=== PATIENT | female | born 1945 | race Caucasian/White ===

== ENCOUNTER 2022-05-07 10:00 | Inpatient (IN) | payer MEDICARE, BC, SELFPAY ==
[2022-05-07] VITALS (7 sets, daily range): BP systolic 98–139; BP diastolic 65–79; PULSE 77–100; RESP 16–22; TEMP 35.9–36.8; O2SAT 85–98; BMI 26.0; BMI 165.6
--- NOTE | 2022-05-07 10:20 | XR_ITS ---
Final Report Patient: BOUBACAR HOLM Facility:?[facility] Patient ID:?[id number] Site Patient ID:?[id number]. Site :?[id number] Study:?XRay Chest Portable 1 View-05/07/2022 10:55:07 AM Ordering Physician:Dale Lara Final Report: INDICATION: Shortness of breath. TECHNIQUE: Chest 1 views. COMPARISON: None. FINDINGS: Cardiovascular and mediastinum: Heart size and vasculature are normal in caliber and appearance. Lungs and pleural spaces: Minimal linear atelectasis or scarring in the left lung base. Lungs are otherwise clear. No sign of infiltrate or mass. No sign of pleural effusion. No pneumothorax. Bones and soft tissues: No significant findings. IMPRESSION: Mild left basilar scarring/atelectasis. No evidence of acute abnormality. Dictated by Nick Castillo MD @ 05/07/2022 11:08:01 AM (Electronic Signature)
--- NOTE | 2022-05-07 10:28 | ED.GENADULT ---
HPI - General Adult General Time Seen by Provider: 10:30 Date Seen: 05/07/22 Chief complaint: Weakness Stated complaint: Covid +, weakness, SOB Source: patient Mode of arrival: ambulatory Limitations: no limitations History of Present Illness HPI narrative: Patient is a 68 year white female that had COVID diagnosed 5 days ago, and has been short of breath progressively over the last couple of days. She has had no history of chronic lung disease by her report. She is on not on oxygen at home. She has had a slight cough. She has had no leg swelling or edema, bleeding or clotting problems. She lives independently in [place]. She presents to ED via ambulance for assessment. She feels ?worn out ?, and feels very weak, she denies any leg swelling as mentioned her bleeding or clotting problems. Patient denies rigors or chills. She was vaccinated for COVID. No neurologic complaints Onset (ago): day(s) Radiation: non-radiation Severity: moderate Related Data Allergies Allergy/AdvReac Type Severity Reaction Status Date / Time azithromycin Allergy Mild Nausea Verified 05/07/22 11:22 Sulfa (Sulfonamide Allergy Mild Nausea Verified 05/07/22 11:22 Antibiotics) Review of Systems Narrative: Review of systems is negative for cardiopulmonary GI neurologic skin. Complete review of systems is negative other per positive HPI. Exam Narrative: Exam Narrative: Objective: The patient's vital signs are unremarkable other than O2 sat in the mid 80s, on room air. Patient gets in the mid 90s on oxygen. She is alert orient x3. Appears weak. HEENT is unremarkable no scleral icterus no facial asymmetry Neck is supple Chest is clear, diminished air exchange bilaterally Heart rate and rhythm regular 2/6 silk systolic murmur Abdomen benign soft nontender no masses Extremities are no edema neurologic nonfocal Good peripheral perfusion Skin exam is unremarkable, skin is warm and dry. Const: Vital Signs, click to edit/add: Vital Signs - 24 hr 05/07/22 10:04 Temperature 96.7 F L Pulse Rate [Right Apical] 100 Respiratory Rate 22 Blood Pressure [Ri ght Upper Arm] 98/66 Pulse Oximetry 88 General appearance: cooperative Orientation/consciousness: Yes awake Neuro: Sensorium/orientation: awake Course Course Hospital Course: Because of the patient's complaint of COVID with shortness of breath will get a chest x-ray, EKG, cardiac monitoring as well as oximetry, will keep her on oxygen. Will give her 500 mL normal saline bolus. Check laboratory studies. Vital Signs Vital signs: Initial Vital Signs Temperature 96.7 F L 05/07/22 10:04 Temperature Source Temporal Artery Scan 05/07/22 10:04 Pulse Rate 100 05/07/22 10:04 Respiratory Rate 22 05/07/22 10:04 Blood Pressure 98/66 05/07/22 10:04 Blood Pressure Mean 76 05/07/22 10:04 Pulse Oximetry 88 05/07/22 10:04 Oxygen Delivery Method 05/07/22 10:04 Vital Signs Temperature 96.7 F L 05/07/22 10:04 Pulse Rate 100 05/07/22 10:04 Respiratory Rate 22 05/07/22 10:04 Blood Pressure 98/66 05/07/22 10:04 Pulse Oximetry 88 05/07/22 10:04 Temperature 96.7 F L 05/07/22 10:04 Pulse Rate 100 05/07/22 10:04 Respiratory Rate 22 05/07/22 10:04 Blood Pressure 98/66 05/07/22 10:04 Pulse Oximetry 88 05/07/22 10:04 Discharge Plan Discharge Clinical Impression: COVID-19, Breath shortness, Weakness Patient Disposition: Admitted As Inpatient Condition: Improved
--- NOTE | 2022-05-07 10:57 | CT_ITS ---
Final Report Patient: BOUBACAR HOLM Facility:?[facility] Patient ID:?[id number] Site Patient ID:?[id number]. Site :?[id number] Study:?CT Chest W/ 95CC ISOVUE-370 PE PROTOCOL-05/07/2022 12:45:52 PM Ordering Physician:Dale Lara Final Report: INDICATION: COVID. Dyspnea. COMPARISON: None TECHNIQUE: : CT examination of the chest was performed with the uneventful intravenous administration of 95 cc of Isovue 370 while thin axial sections were obtained from above the apices of the lungs to the lung bases. Please note that all CT scans at this facility use dose modulation, iterative reconstruction, and/or weight-based dosing when appropriate to reduce radiation dose to as low as reasonably achievable. FINDINGS: : HEART and MEDIASTINUM: The heart size is normal. There is no mediastinal or hilar adenopathy or mass. There is no pericardial effusion. There atherosclerotic vascular and valvular calcifications. PULMONARY ARTERIAL CIRCULATION: There is no visible intraluminal filling defect to suggest pulmonary embolus. LUNGS: Moderate upper lobe predominant centrilobular emphysema. Evidence of remote granulomatous infection. Linear opacities the mid lungs and at the bases probably related atelectasis or scarring. Mild patchy ground-glass opacities in the mid and basilar lungs probably inflammatory. A few noncalcified nodules are identified the largest of which measures 6 millimeters on the right on image 114. PLEURAL SPACES: There is no pleural effusion, pneumothorax or pleural based mass. VISUALIZED UPPER ABDOMEN: The limited visualized upper abdominal structures appear normal. OSSEOUS STRUCTURES: Age-appropriate appearance. No acute fracture or destructive process.Scoliosis TUBES and LINES: None. INCIDENTAL CHEST WALL: Calcifications along breast probably related to prior surgery IMPRESSION: 1. There is no finding of pulmonary embolus. 2. A few patchy ground-glass opacities are noted in the mid and basal lungs which are probably inflammatory. No focal consolidation or mass. 3. Background pattern of moderate upper lobe predominant centrilobular emphysema. 4. Areas of scarring and atelectasis. Evidence of remote granulomatous infection. A few noncalcified nodules are identified largest of which measures 6 millimeters. A follow-up CT of the chest in 6 months is advised. Please note that all CT scans at this facility use dose modulation, iterative reconstruction, and/or weight-based dosing when appropriate to reduce radiation dose to as low as reasonably achievable. Dictated by Alon Kwon MD @ 05/07/2022 1:07:36 PM (Electronic Signature)
[2022-05-07] MEDS: 0.9 % SODIUM CHLORIDE 500 ML 500 ML IV (11:33)
[2022-05-07 11:41] LABS: Slide Review Reflex No
[2022-05-07 11:49] LABS: Basophils Absolute Auto 0.01 K/uL (0.00-0.30); Basophils Percent Auto 0.2 % (0.0-3.0); Hematocrit 44.1 % (33.0-51.0); Hemoglobin* 14.7 gm/dL (12.0-16.0); Immature Granulocytes Abs Auto 0.02 K/uL (0.00-0.30); Lymphocytes Absolute Auto 1.18 K/uL (0.90-2.90); Lymphocytes Percent Auto 25.4 % (20-44); Mean Corpuscular HGB Conc 33 gm/dL (32-36); Mean Corpuscular Hemoglobin 31 pg (26-34); Mean Corpuscular Volume 93 fL (80-100); Neutrophils Absolute Auto 2.64 K/uL (1.7-7.0); Platelet Count* 191 K/uL (140-440); RDW Coefficient of Variation % 13.6 % (11.5-15.5); Red Blood Count 4.76 m/uL (4.00-5.20); White Blood Count* 4.64 K/uL (4.50-11.00)
[2022-05-07 12:05] LABS: Albumin* 4.1 g/dL (3.3-5.0); Chloride* 104 mmol/L (96-114); Sodium* 136 mmol/L (135-149)
[2022-05-07 12:06] LABS: Potassium* 3.8 mmol/L (3.6-5.1)
[2022-05-07 12:07] LABS: Creatinine* 0.7 mg/dL (0.5-1.5); Est. Creatinine Clearance* 38.35; Estimated Glomerular Filt Rate 88.47
[2022-05-07 12:08] LABS: Alanine Aminotransferase* 29 U/L (4-35); Alkaline Phosphatase* 75 U/L (40-150); Aspartate Amino Transferase* 49 U/L (12-35); Bilirubin Total* 0.5 mg/dL (0.1-1.5); Blood Urea Nitrogen* 20 mg/dL (7-30); Carbon Dioxide* 25 mmol/L (20-32); Total Protein* 7.2 g/dL (6.0-8.3)
[2022-05-07 12:09] LABS: Glucose* 109 mg/dL (60-115)
[2022-05-07 12:11] LABS: C Reactive Protein* 0.5 mg/dL (0.5-1.0)
[2022-05-07] MEDS: MORPHINE 2 MG/ML inj IVP (13:00)
[2022-05-07 13:13] LABS: SARS PCR* POSITIVE (Negative)
[2022-05-07] MEDS: dexAMETHasone 4 MG/ML VIAL 6 MG IV (13:33)
--- NOTE | 2022-05-07 14:50 | PM.IMHP1 ---
Hospitalist- H&P: HPI History of Present Illness Time Seen by Provider: 15:31 Date Seen: 05/07/22 Chief complaint: Covid +, weakness, SOB Review of Systems Status of ROS: Reports: 10 or more systems reviewed and unremarkable except as noted in History and below [facility] Medical History (Updated 05/07/22 @ 15:49 by Renae Coulter MD) Abnormal mammogram Arachnoiditis Cervical spondylosis with myelopathy and radiculopathy Chest pain Cholelithiasis Chronic lymphocytic thyroiditis Chronic pain Colon cancer screening Constipation COVID-19 vaccine administered Diverticulitis DVT (deep venous thrombosis) Elevated blood sugar Glaucoma H/O coronary angiogram Hyperlipidemia Hypothyroidism Insomnia Issue of repeat prescription Macular hole Malignant neoplasm of left breast Obesity (BMI 30.0-34.9) Osteoporosis Palpitations Rotator cuff syndrome of both shoulders Umbilical hernia without mention of obstruction or gangrene Surgical History (Updated 05/07/22 @ 14:41 by Renae Coulter MD) H/O arthroscopy of shoulder H/O hernia repair H/O laminectomy Hx laparoscopic cholecystectomy S/P breast lumpectomy S/P rotator cuff repair Social History (Updated 05/07/22 @ 15:42 by Renae Coulter MD) Highest level of school completed/degree received: Associate degree: academic program Smoking Status: Former smoker What tobacco products do you use: cigarettes Smoking packs per day: 1 Smoking cigarettes per day: 20.0 Years smoked: 25 Smoking pack-years: 25.00 Smoking quit date/years: >15 years ago Do you use any of these nicotine containing products: None Nicotine containing products detail: quit 25 years ago Second hand tobacco smoke exposure: No How often do you have a drink containing alcohol: monthly or less Alcohol type: wine Alcohol type details: 1 glass wine every 2-3 months. AUDIT-C Alcohol total score: 1 Non-prescribed substance use: denies use Caffeine: Yes service: No Meds Home Medications and Allergies Home Medications Medication Instructions Recorded Confirmed Type biotin 2,500 mcg capsule 2,500 mcg PO DAILY 05/07/22 05/07/22 History docusate sodium 100 mg capsule 100 mg PO HS 05/07/22 05/07/22 History (Colace) doxylamine succinate 25 mg tablet 12.5 mg PO HS PRN 05/07/22 05/07/22 History (Unisom (doxylamine)) gabapentin 300 mg capsule 300 mg PO HS 05/07/22 05/07/22 History latanoprost 0.005 % eye drops 1 drp OPHTHALMIC (EYE) DAILY 05/07/22 05/07/22 History levothyroxine 137 mcg tablet 137 mcg PO DAILY 05/07/22 05/07/22 History lidocaine 5 % topical patch 1 patch TOPICAL Q24H PRN 05/07/22 05/07/22 History nirmatrelvir 300 mg (150 mg x 3 tab PO BID 05/07/22 05/07/22 History 2)-ritonavir 100 mg tablet (EUA) (Paxlovid 300 mg () oxycodone 40 mg tablet,crush 40 mg PO DAILY 05/07/22 05/07/22 History resistant,extended release 12 hr (OxyContin) oxycodone-acetaminophen 5 mg-325 2 tab PO Q4H PRN 05/07/22 05/07/22 History mg tablet simvastatin 40 mg tablet 40 mg PO HS 05/07/22 05/07/22 History timolol maleate 0.5 % eye drops 1 drp OPHTHALMIC (EYE) HS 05/07/22 05/07/22 History Allergies Allergy/AdvReac Type Severity Reaction Status Date / Time azithromycin Allergy Mild Nausea Verified 05/07/22 12:36 Sulfa (Sulfonamide Allergy Mild Nausea Verified 05/07/22 12:36 Antibiotics) Exam Const: Vital Signs, click to edit/add: Vital Signs - 24 hr 05/07/22 10:04 05/07/22 11:29 05/07/22 13:43 Temperature 96.7 F L Pulse Rate [Pulse Oximeter] Pulse Rate [Right Apical] 100 81 Respiratory Rate 22 18 18 Blood Pressure [Ri ght Arm] Blood Pressure [Ri ght Upper Arm] 98/66 110/70 Pulse Oximetry 88 96 97 05/07/22 14:09 Temperature 97.2 F L Pulse Rate [Pulse Oximeter] 77 Pulse Rate [Right Apical] Respiratory Rate 20 Blood Pressure [Ri ght Arm] 139/79 Blood Pressure [Ri ght Upper Arm] Pulse Oximetry 98 Documenting provider has reviewed patient's vital signs: yes Common normals: no apparent distress, oriented x3 and alert General appearance: cooperative and comfortable Orientation/consciousness: Yes awake HENMT: Common normals: normocephalic, head/scalp atraumatic, moist oral mucous membranes and oropharynx normal Head and scalp: normocephalic and atraumatic Eye: Common normals: PERRL Pupil: PERRL Neck & C-Spine: Common normals: no lymphadenopathy, no JVD and no carotid bruits Carotids: no bruit Resp: Common normals: normal respiratory effort and clear to auscultation bilaterally Auscultation: clear to auscultation bilaterally Cardio: Common normals: no JVD, regular rate, regular rhythm, no gallops, no murmurs, no rub and peripheral pulses 2+ throughout Rate: regular rate Rhythm: regular rhythm Peripheral pulses: pulses 2+ throughout GI: Common normals: Normal to inspection, nondistended, normoactive bowel sounds present, soft to palpation, non-tender, no hepatosplenomegaly and no masses Palpation: soft and no hepatosplenomegaly Extremity: Common normals: no clubbing, cyanosis or edema Neuro: Common normals: oriented x3 and moves all extremities Sensorium/orientation: awake and alert Speech: speech normal Hospitalist - H&P: Result Labs Labs: Short CBC 05/07/22 Range/Units 11:32 WBC 4.64 (4.50-11.00) K/uL Hgb 14.7 (12.0-16.0) gm/dL Hct 44.1 (33.0-51.0) % Plt Count 191 (140-440) K/uL BMP 05/07/22 11:29 Sodium 136 Potassium 3.8 Chloride 104 Carbon Dioxide 25 BUN 20 Creatinine 0.7 Glucose 109 Calcium 9.0 Liver Function 05/07/22 Range/Units 11:29 Total Bilirubin 0.5 (0.1-1.5) mg/dL AST 49 H (12-35) U/L ALT 29 (4-35) U/L Alkaline Phosphatase 75 (40-150) U/L Albumin 4.1 (3.3-5.0) g/dL Imaging Imaging: Attestation: I have reviewed the pertinent imaging results. Radiologist's impression: Chest x-ray: Mild left basilar scarring/atelectasis. No evidence of acute abnormality. CT chest with IV contrast, PE protocol: 1. There is no finding of pulmonary embolus. 2. A few patchy ground-glass opacities are noted in the mid and basal lungs which are probably inflammatory. No focal consolidation or mass. 3. Background pattern of moderate upper lobe predominant centrilobular emphysema. 4. Areas of scarring and atelectasis. Evidence of remote granulomatous infection. A few noncalcified nodules are identified largest of which measures 6 millimeters. A follow-up CT of the chest in 6 months is advised. Assessment and Plan Assessment and plan (1) Lung nodule, multiple: Problem comment: CT chest 05/07/22. Evidence of remote granulomatous infection. A few noncalcified nodules are identified largest of which measures 6 millimeters. A follow-up CT of the chest in 6 months is advised. Status: Acute (2) COVID-19: Status: Acute (3) Weakness: Status: Acute
--- NOTE | 2022-05-07 15:07 | PC.NURSE ---
End of shift note: Patient arrived from ED at 1350. Currently on 1.5L via NC. Ambulated to bathroom with assist of 1, gb, and cane. 18g PIV in left forearm. Patient has chronic pain and has pain 8/10. Has not had her medications today. MD was made aware. Lung sounds were diminished. Bowel sounds active and LBM 05/06. Patient is alert and orientated. Lives alone and does have a son in town but he works multimedia specialist and doesn't want to bother him. Daughter in [place]. Does complain of left breast pain. Hx of breast cancer and has an appointment with her oncologist next week to evaluate new symptoms. Patient stated she has intermittent nausea with the mucous secretions that gather in her throat but is eating and drinking. Unsure of discharge plan. PT consult placed.
[2022-05-07] MEDS: ACETAMINOPHEN 325 MG TABLET 650 MG PO (16:01)
--- NOTE | 2022-05-07 16:14 | P.IMHP_ITS ---
Hospitalist- H&P: HPI History of Present Illness Time Seen by Provider: 15:31 Date Seen: 05/07/22 Chief complaint: Covid +, weakness, SOB Narrative: Bailee Cartagena is a 76 year old female. Thursday developed weakness, SOB, malaise, cough, sticky mucous that is dif ficult to cough up, poor appetite, hoarseness no chest pain. feels chest heaviness, comes and goes, worse when up and moving no leg swelling raw sore throat just dont feel like myself Paxlovid yesterday and this morning. Held simvistatin because of paxlovid. hoarse vibratory pep Review of Systems Status of ROS: Reports: 10 or more systems reviewed and unremarkable except as noted in History and below [facility] Medical History Abnormal mammogram Arachnoiditis Cervical spondylosis with myelopathy and radiculopathy Chest pain Cholelithiasis Chronic lymphocytic thyroiditis Chronic pain Colon cancer screening Constipation COVID-19 vaccine administered Diverticulitis DVT (deep venous thrombosis) Elevated blood sugar Glaucoma H/O coronary angiogram Hyperlipidemia Hypothyroidism Insomnia Issue of repeat prescription Macular hole Malignant neoplasm of left breast Obesity (BMI 30.0-34.9) Osteoporosis Palpitations Rotator cuff syndrome of both shoulders Umbilical hernia without mention of obstruction or gangrene Surgical History H/O arthroscopy of shoulder H/O hernia repair H/O laminectomy Hx laparoscopic cholecystectomy S/P breast lumpectomy S/P rotator cuff repair Social History Problems where you live details: Lives alone Highest level of school completed/degree received: Associate degree: academic program Smoking Status: Former smoker What tobacco products do you use: cigarettes Smoking packs per day: 1 Smoking cigarettes per day: 20.0 Years smoked: 25 Smoking pack-years: 25.00 Smoking quit date/years: >15 years ago Do you use any of these nicotine containing products: None Nicotine containing products detail: quit 25 years ago Second hand tobacco smoke exposure: No How often do you have a drink containing alcohol: monthly or less Alcohol type: wine Alcohol type details: 1 glass wine every 2-3 months. AUDIT-C Alcohol total score: 1 Non-prescribed substance use: denies use Caffeine: Yes service: No Meds Home Medications and Allergies Home Medications Medication Instructions Recorded Confirmed Type biotin 2,500 mcg capsule 2,500 mcg PO DAILY 05/07/22 05/07/22 History docusate sodium 100 mg capsule 100 mg PO HS 05/07/22 05/07/22 History (Colace) doxylamine succinate 25 mg tablet 12.5 mg PO HS PRN 05/07/22 05/07/22 History (Unisom (doxylamine)) gabapentin 300 mg capsule 300 mg PO HS 05/07/22 05/07/22 History latanoprost 0.005 % eye drops 1 drp OPHTHALMIC (EYE) DAILY 05/07/22 05/07/22 History levothyroxine 137 mcg tablet 137 mcg PO DAILY 05/07/22 05/07/22 History lidocaine 5 % topical patch 1 patch TOPICAL Q24H PRN 05/07/22 05/07/22 History nirmatrelvir 300 mg (150 mg x 3 tab PO BID 05/07/22 05/07/22 History 2)-ritonavir 100 mg tablet (EUA) (Paxlovid 300 mg () oxycodone 40 mg tablet,crush 40 mg PO DAILY 05/07/22 05/07/22 History resistant,extended release 12 hr (OxyContin) oxycodone-acetaminophen 5 mg-325 2 tab PO Q4H PRN 05/07/22 05/07/22 History mg tablet simvastatin 40 mg tablet 40 mg PO HS 05/07/22 05/07/22 History timolol maleate 0.5 % eye drops 1 drp OPHTHALMIC (EYE) HS 05/07/22 05/07/22 History Allergies Allergy/AdvReac Type Severity Reaction Status Date / Time azithromycin Allergy Mild Nausea Verified 05/07/22 12:36 Sulfa (Sulfonamide Allergy Mild Nausea Verified 05/07/22 12:36 Antibiotics) Exam Const: Vital Signs, click to edit/add: Vital Signs - 24 hr 05/07/22 10:04 05/07/22 11:29 05/07/22 13:43 Temperature 96.7 F L Pulse Rate [Pulse Oximeter] Pulse Rate [Right Apical] 100 81 Respiratory Rate 22 18 18 Blood Pressure [Ri ght Arm] Blood Pressure [Ri ght Upper Arm] 98/66 110/70 Pulse Oximetry 88 96 97 05/07/22 14:09 Temperature 97.2 F L Pulse Rate [Pulse Oximeter] 77 Pulse Rate [Right Apical] Respiratory Rate 20 Blood Pressure [Ri ght Arm] 139/79 Blood Pressure [Ri ght Upper Arm] Pulse Oximetry 98 Documenting provider has reviewed patient's vital signs: yes Common normals: no apparent distress, oriented x3 and alert General appearance: cooperative, comfortable and well [facility] Nutritional appearance: obese Orientation/consciousness: Yes awake HENMT: Common normals: normocephalic, head/scalp atraumatic, moist oral mucous membranes and oropharynx normal Head and scalp: normocephalic and atraumatic; no cyanosis of lips/distal nose Face and sinus: no acrocyanosis present Eye: Common normals: PERRL Pupil: PERRL Neck & C-Spine: Common normals: no lymphadenopathy, no JVD, thyroid normal and no carotid bruits Thyroid: thyroid normal Carotids: no bruit Resp: Common normals: normal respiratory effort and no use of accessory muscles Effort & inspection: able to speak in complete sentences Auscultation: crackles Laterality: bilateral (Left more than right) at the base; no wheezes Cardio: Common normals: no JVD, regular rate, regular rhythm, no gallops, no murmurs, no rub and peripheral pulses 2+ throughout Rate: regular rate Rhythm: regular rhythm Peripheral pulses: pulses 2+ throughout GI: Common normals: Normal to inspection, nondistended, normoactive bowel sounds present, soft to palpation, non-tender, no hepatosplenomegaly and no masses Palpation: soft and no hepatosplenomegaly Back & Pelvis: Other: Sat up and forward from laying down in bed without help and without difficulty, did not appear to be in pain doing this. Extremity: General: edema (1+ bilateral lower extremity edema, thick ankles); no clubbing and no cyanosis Neuro: Common normals: oriented x3 and moves all extremities Sens orium/orientation: awake and alert Speech: other (hoarse) Psych: Appearance: well [facility] Hospitalist - H&P: Result Labs Labs: Short CBC 05/07/22 Range/Units 11:32 WBC 4.64 (4.50-11.00) K/uL Hgb 14.7 (12.0-16.0) gm/dL Hct 44.1 (33.0-51.0) % Plt Count 191 (140-440) K/uL BMP 05/07/22 11:29 Sodium 136 Potassium 3.8 Chloride 104 Carbon Dioxide 25 BUN 20 Creatinine 0.7 Glucose 109 Calcium 9.0 Liver Function 05/07/22 Range/Units 11:29 Total Bilirubin 0.5 (0.1-1.5) mg/dL AST 49 H (12-35) U/L ALT 29 (4-35) U/L Alkaline Phosphatase 75 (40-150) U/L Albumin 4.1 (3.3-5.0) g/dL Imaging CT scan - chest: Attestation: I have reviewed the pertinent imaging results. Radiologist's impression: 1. There is no finding of pulmonary embolus. 2. A few patchy ground-glass opacities are noted in the mid and basal lungs which are probably inflammatory. No focal consolidation or mass. 3. Background pattern of moderate upper lobe predominant centrilobular emphysema. 4. Areas of scarring and atelectasis. Evidence of remote granulomatous infection. A few noncalcified nodules are identified largest of which measures 6 millimeters. A follow-up CT of the chest in 6 months is advised. Chest x-ray: Attestation: I have reviewed the pertinent imaging results. Radiologist's impression: Mild left basilar scarring/atelectasis. No evidence of acute abnormality. Assessment and Plan Assessment and plan (1) Acute hypoxemic respiratory failure: Problem comment: Secondary to COVID-19 infection Status: Acute Assessment and Plan: Treat COVID as below and use oxygen supplementation via nasal cannula. If oxygen needs are increasing, check venous blood gas. (2) COVID-19: Problem comment: Acute severe infection, symptoms began 05/03/2022. SARs CoV 2 PCR positive 05/07/2022. Status: Acute Assessment and Plan: Since patient is hypoxic now, stop Paxlovid, start Remdesivir and dexamethasone. The 1st doses of these were given in the emergency department and I will order them to continue. (3) Weakness: Problem comment: Secondary to COVID-19 infection. Status: Acute Assessment and Plan: Treat COVID-19 infection as above. Obtain PT and OT evaluations. (4) Volume overload: Problem comment: Mild Status: Acute Assessment and Plan: Lung crackles on exam may be COVID-19 infection, however since she had also has lower extremity edema and people with COVID typically do better if they are euvolemic or even slightly hypovolemic, I will give her a dose of furosemide. (5) Lung nodule, multiple: Problem comment: CT chest 05/07/22. Evidence of remote granulomatous infection. A few noncalcified nodules are identified largest of which measures 6 millimeters. A follow-up CT of the chest in 6 months is advised. Status: Acute Assessment and Plan: I spoke with her about these results and recommended that she follow-up with her primary care provider for a CT chest in 6 months. She demonstrated understanding. Plan VTE prophylaxis with SCDs and low-dose nightly Lovenox.
[2022-05-07] MEDS: OxyCODONE/APAP 5-325 TABLET 2 TAB PO ×3 (16:23→23:48)
[2022-05-07] MEDS: FUROSEMIDE 20 MG TABLET PO (16:58)
[2022-05-07] MEDS: LIDOCAINE 5% PATCH 1 PATCH TOPICAL (19:10)
[2022-05-07] MEDS: timoloL maleate 0.5 % 1 DROP EYE-BOTH (20:43)
[2022-05-07] MEDS: GABAPENTIN 300 MG CAPSULE PO (21:20)
[2022-05-07] MEDS: ENOXAPARIN 40 MG/0.4 ML INJ SUBCUT (21:20)
[2022-05-07] MEDS: DOCUSATE SODIUM 100 MG CAPSULE PO (21:20)
--- NOTE | 2022-05-07 22:16 | PC.NURSE ---
Patient is pleasant and cooperative. She rates pain 8-9 to lower back and whole body. PRN pain medication provided with some relief. She is up with cane, gait belt and assist of 1. She remains on 2L O2 with saturations in low-mid 90s%.
[2022-05-08] VITALS (11 sets, daily range): BP systolic 106–147; BP diastolic 62–77; PULSE 62–83; RESP 16–20; TEMP 36.1–36.8; O2SAT 91–99
[2022-05-08] MEDS: OxyCODONE/APAP 5-325 TABLET 2 TAB PO ×4 (04:08→20:41)
--- NOTE | 2022-05-08 05:09 | PC.NURSE ---
Addendum entered by Marito Chavarria RN 05/08/22 07:13: Up to void again 150mls so total 275mls for shift just voids small amounts each time. Note left for re: pt prefers Oxycontin at 0700 and I was unable to pull it from the [facility] at 0700. Original Note: Required 3LNC while asleep CARLOS ENRIQUE/mouth breathing pattern w/shallow respirations. Was desatting to mid 80s on 2LNC. Chronic pain cont's -06/18 gave Percocet x2 at 0000 and 0400 and pain control catching up. Requesting Oxycontin at 0700 per home regimen. Lungs are clear/diminished occ dry cough. Up to BR voided 125mls by 0500. Declines SCDs d/t poor sleep previous nights. Up to BR w/assist for O2 line ind w/cares tolerating diet.
[2022-05-08] MEDS: LEVOTHYROXINE 25 MCG TABLET PO (06:35)
[2022-05-08] MEDS: LEVOTHYROXINE 112 MCG TABLET PO (06:35)
[2022-05-08] MEDS: dexAMETHasone 2 MG TABLET 6 MG PO (08:38)
[2022-05-08] MEDS: SODIUM CHLORIDE 0.9 % (FLUSH) 10 ML SYRINGE 5 ML IVF ×2 (08:39→20:40)
[2022-05-08] MEDS: LATANOPROST 0.005% OPHTH 1 DROP EYE-BOTH (08:39)
[2022-05-08 14:24] LABS: Hematocrit 41.2 % (33.0-51.0); Hemoglobin* 13.4 gm/dL (12.0-16.0); Mean Corpuscular HGB Conc 33 gm/dL (32-36); Mean Corpuscular Hemoglobin 31 pg (26-34); Mean Corpuscular Volume 95 fL (80-100); Platelet Count* 173 K/uL (140-440); Red Blood Count 4.35 m/uL (4.00-5.20); White Blood Count* 3.95 K/uL (4.50-11.00)
[2022-05-08 14:28] LABS: Slide Review Reflex No
[2022-05-08 14:56] LABS: HCO3 VBG 28 mmol/L (21-28); Lactate* 1.5 mmol/L (0.5-1.9); PCO2 VBG 51 mmHG (40-50); PO2 VBG 25.9 mmHG (25-47)
[2022-05-08 15:06] LABS: Albumin* 3.9 g/dL (3.3-5.0); Chloride* 102 mmol/L (96-114); Sodium* 136 mmol/L (135-149)
[2022-05-08 15:07] LABS: Potassium* 3.8 mmol/L (3.6-5.1)
[2022-05-08 15:09] LABS: Alkaline Phosphatase* 64 U/L (40-150); Aspartate Amino Transferase* 42 U/L (12-35); Bilirubin Total* 0.4 mg/dL (0.1-1.5); Carbon Dioxide* 26 mmol/L (20-32); Creatinine* 0.8 mg/dL (0.5-1.5); Est. Creatinine Clearance* 40.04; Estimated Glomerular Filt Rate 75.37; Total Protein* 6.7 g/dL (6.0-8.3)
[2022-05-08 15:10] LABS: Alanine Aminotransferase* 30 U/L (4-35); Blood Urea Nitrogen* 29 mg/dL (7-30); Glucose* 146 mg/dL (60-115); Magnesium* 1.9 mg/dL (1.5-2.6)
[2022-05-08 15:16] LABS: C Reactive Protein* < 0.5 mg/dL (0.5-1.0)
[2022-05-08 16:32] LABS: Procalcitonin* 0.07 ng/mL (<0.50)
--- NOTE | 2022-05-08 17:51 | PC.NURSE ---
SHIFT REPORT: PATIENT PLEASANT AND COOPERATIVE, ALERT AND ORIENTED, UP WITH SBA WITH CANE IN ROOM, DECLINING SOB WITH ACTIVITY, O2 VIA NC INITIALLY AT 3L THIS MORNING HAVE SINCE BEEN ABLE TO WEAN TO 1L WITH SATS MID 90S, CHRONIC BACK PAIN FOR WHICH PATIENT IS GETTING SCHEDULED OXY AND PRN PERCOCET, PER PATIENT THIS IS KEEPING PAIN ABOUT A 6 WHICH IS TOLERABLE, TOLERATING REG DIET FAIRLY, EXPRESSES HAVING A POOR APPETITE BUT EATING 75% OF MEALS.
[2022-05-08 18:39] LABS: Troponin I* < 0.01 ng/mL (0.01-0.04)
[2022-05-08] MEDS: ENOXAPARIN 40 MG/0.4 ML INJ SUBCUT (20:40)
[2022-05-08] MEDS: timoloL maleate 0.5 % 1 DROP EYE-BOTH (20:41)
[2022-05-08] MEDS: DOCUSATE SODIUM 100 MG CAPSULE PO (20:41)
[2022-05-08] MEDS: GABAPENTIN 300 MG CAPSULE PO (20:41)
[2022-05-09] VITALS (7 sets, daily range): BP systolic 127–140; BP diastolic 67–80; PULSE 68–83; RESP 12–18; TEMP 36.4–36.8; O2SAT 91–95
[2022-05-09] MEDS: OxyCODONE/APAP 5-325 TABLET 2 TAB PO ×4 (00:57→20:24)
--- NOTE | 2022-05-09 06:26 | PC.NURSE ---
0630-4030: Patient pleasant and cooperative. Rates pain 8/10 (chronic). PRN Percocet administered for relief. Patient appeared to rest well during noc. SBA w/cane to BR. Denies N/V. 1 Lt NC to maintain O2>90%.
[2022-05-09] MEDS: LEVOTHYROXINE 112 MCG TABLET PO (06:41)
[2022-05-09] MEDS: LEVOTHYROXINE 25 MCG TABLET PO (06:41)
[2022-05-09 07:26] LABS: Hematocrit 37.8 % (33.0-51.0); Hemoglobin* 12.5 gm/dL (12.0-16.0); Mean Corpuscular HGB Conc 33 gm/dL (32-36); Mean Corpuscular Hemoglobin 31 pg (26-34); Mean Corpuscular Volume 93 fL (80-100); Platelet Count* 159 K/uL (140-440); Red Blood Count 4.05 m/uL (4.00-5.20); White Blood Count* 5.57 K/uL (4.50-11.00)
[2022-05-09 07:34] LABS: pH VBG 7.404 (7.32-7.43)
[2022-05-09 07:35] LABS: HCO3 VBG 30 mmol/L (21-28); PCO2 VBG 48 mmHG (40-50)
[2022-05-09 07:44] LABS: Slide Review Reflex No
[2022-05-09 07:49] LABS: Chloride* 105 mmol/L (96-114); Potassium* 4.2 mmol/L (3.6-5.1); Sodium* 136 mmol/L (135-149)
[2022-05-09 07:52] LABS: Blood Urea Nitrogen* 28 mg/dL (7-30); Carbon Dioxide* 31 mmol/L (20-32); Creatinine* 0.6 mg/dL (0.5-1.5); Est. Creatinine Clearance* 40.04; Estimated Glomerular Filt Rate 91.82
[2022-05-09 07:53] LABS: Calcium* 8.7 mg/dL (8.4-10.6); Glucose* 136 mg/dL (60-115); Magnesium* 1.9 mg/dL (1.5-2.6)
[2022-05-09 08:00] LABS: NT Pro B Type NatriureticPept* 319 PG/mL (0-450)
[2022-05-09] MEDS: LIDOCAINE 5% PATCH 1 PATCH TOPICAL (08:10)
[2022-05-09 08:18] LABS: C Reactive Protein* < 0.5 mg/dL (0.5-1.0); Troponin I* < 0.01 ng/mL (0.01-0.04)
[2022-05-09 08:58] LABS: Procalcitonin* 0.06 ng/mL (<0.50)
[2022-05-09] MEDS: dexAMETHasone 2 MG TABLET 6 MG PO (09:03)
[2022-05-09] MEDS: LATANOPROST 0.005% OPHTH 1 DROP EYE-BOTH (09:04)
[2022-05-09] MEDS: SODIUM CHLORIDE 0.9 % (FLUSH) 10 ML SYRINGE 5 ML IVF ×3 (09:05→20:23)
[2022-05-09] MEDS: BENZOCAINE/MENTHOL 1 EACH LOZENGE MUCOUS MEM (09:16)
--- NOTE | 2022-05-09 14:52 | PC.NURSE ---
End of Shift: Patient pleasant and cooperative. Patient is vitally stable, lung clear, BS WNL, IV SL. Patient on room air sating 90-91%, after returning from walking to the toilet patient desats to about 87% then recovers in about 1-2min. Patient is SBA with cane to the toilet. Patient has rated pain 7-8/10, Lidocaine patch applied to left side of spine and lower neck, norco given x1. Patient urinating and tolerating regular diet, no BM this shift.
--- NOTE | 2022-05-09 18:35 | PC.NURSE ---
shift note [id number]: pt pleasant and cooperative. SBA with cane, pt tolerating well. pt ate 50% of her meal, states her appetite hasn't been that great since admission. On RA while awake- maintaining sats 91-94%. Pt was walking throughout the room and tolerated very well, when pt sat down her O2 sat was 88% and she rebounded quickly to 92% with rest. C/o pain 06/18 - chronic back and neck pain, PRN narco given. pt states the lidocaine patch on her back assists with pain management as well.
[2022-05-09] MEDS: DOCUSATE SODIUM 100 MG CAPSULE PO (20:22)
[2022-05-09] MEDS: ENOXAPARIN 40 MG/0.4 ML INJ SUBCUT (20:22)
--- NOTE | 2022-05-09 20:22 | PM.IMPN1 ---
Progress Note: A&P Assessment and plan (1) Acute hypoxemic respiratory failure: Problem details: Secondary to COVID-19 infection Status: Acute Assessment and Plan: Clinically improving. (2) COVID-19: Problem details: Acute severe infection, symptoms began 05/03/2022. SARs CoV 2 PCR positive 05/07/2022. Status: Acute Assessment and Plan: Status post 2 days of Paclovid, now on Remdesivir and dexamethasone. Status post 1 dose of Lasix. (3) Weakness: Problem details: Secondary to COVID-19 infection. Status: Acute Assessment and Plan: Clinically improving (4) Volume overload: Problem details: Mild Status: Acute Assessment and Plan: Clinically improving (5) Lung nodule, multiple: Problem details: CT chest 05/07/22. Evidence of remote granulomatous infection. A few noncalcified nodules are identified largest of which measures 6 millimeters. A follow-up CT of the chest in 6 months is advised. Status: Acute Assessment and Plan: Noted. Subjective Time Seen by Provider: 12:00 Date Seen: 05/08/22 Interval history: Daily Progress Note - Hospital Medicine Day #: 2 CC: COVID-19 acute hypoxic respiratory failure OVERNIGHT UPDATES FROM STAFF & MED, LAB, IMAGING UPDATES Improving. Patient told me this morning ?if you saw me yesterday you would of put me in the ground? - I suspect IV Remdesivir, dexamethasone and Lasix have made pretty good impact. Review of Systems: See subjective Cardiac: No new chest pain/pressure/palpitations. Respiratory: no new dyspnea. GI: No abdominal bloating Objective: Alert. No groomed. No acute distress. Vitals: see above Lungs: Diminished Cardiac: S1S2. Disposition/Potential discharge - Likely to return to previous living situation. Total time is 70 minutes with greater than 50% spent in counseling and coordination of care. Exam Const: Vital Signs, click to edit/add: Vital Signs - 24 hr 05/08/22 23:00 05/08/22 23:17 05/09/22 03:46 Temperature 98.3 F 97.8 F Pulse Rate [Pulse Oximeter] 66 66 74 Respiratory Rate 18 18 18 Blood Pressure [Ri ght Arm] 106/62 130/67 Pulse Oximetry 91 93 91 05/09/22 07:54 05/09/22 08:03 05/09/22 11:26 Temperature 98.1 F 97.6 F Pulse Rate [Pulse Oximeter] 68 75 Respiratory Rate 12 12 14 [facility]] 140/80 H 132/73 Pulse Oximetry 95 93 94 05/09/22 15:00 05/09/22 20:14 Temperature 98.3 F 98.1 F Pulse Rate [Pulse Oximeter] 83 82 Respiratory Rate 14 18 Blood Pressure [facility]] 127/77 131/71 Pulse Oximetry 93 95 Labs Labs: Laboratory Results - last 24 hr 05/09/22 05/09/22 05/09/22 07:14 07:14 07:14 WBC 5.57 RBC 4.05 Hgb 12.5 Hct 37.8 MCV 93 MCH 31 MCHC 33 Plt Count 159 VBG pH 7.404 VBG pCO2 48 VBG pO2 41.0 VBG HCO3 30 H Sodium 136 Potassium 4.2 Chloride 105 Carbon Dioxide 31 BUN 28 Creatinine 0.6 Estimated Creat Clear 40.04 Glucose 136 H Calcium 8.7 Magnesium 1.9 Troponin I < 0.01 L C-Reactive Protein < 0.5 L NT-Pro-B Natriuret Pep 319 Procalcitonin 0.06
[2022-05-09] MEDS: GABAPENTIN 300 MG CAPSULE PO (20:23)
[2022-05-09] MEDS: timoloL maleate 0.5 % 1 DROP EYE-BOTH (20:24)
--- NOTE | 2022-05-09 20:25 | PM.IMPN1 ---
Progress Note: A&P Assessment and plan (1) Acute hypoxemic respiratory failure: Problem details: Secondary to COVID-19 infection Status: Acute Assessment and Plan: continues to improve. (2) COVID-19: Problem details: Acute severe infection, symptoms began 05/03/2022. SARs CoV 2 PCR positive 05/07/2022. Status: Acute (3) Weakness: Problem details: Secondary to COVID-19 infection. Status: Acute (4) Volume overload: Problem details: Mild Status: Acute (5) Lung nodule, multiple: Problem details: CT chest 05/07/22. Evidence of remote granulomatous infection. A few noncalcified nodules are identified largest of which measures 6 millimeters. A follow-up CT of the chest in 6 months is advised. Status: Acute Subjective Interval history: Daily Progress Note - Hospital Medicine Day #: 3 s/p 3 doses remdesivir (load, two 100mg IV doses) on DEX CC: COVID-19 acute hypoxic respiratory failure OVERNIGHT UPDATES FROM STAFF & MED, LAB, IMAGING UPDATES about the same as yesterday. Review of Systems: See subjective Cardiac: No new chest pain/pressure/palpitations. Respiratory: no new dyspnea. GI: No abdominal bloating Objective: Alert. Nicely groomed. No acute distress. Vitals: see above Lungs: Diminished Cardiac: S1S2. Disposition/Potential discharge - Likely to return to previous living situation. Total time is 25 minutes with greater than 50% spent in counseling and coordination of care. Exam Const: Vital Signs, click to edit/add: Vital Signs - 24 hr 05/08/22 23:00 05/08/22 23:17 05/09/22 03:46 Temperature 98.3 F 97.8 F Pulse Rate [Pulse Oximeter] 66 66 74 Respiratory Rate 18 18 18 Blood Pressure [Ri ght Arm] 106/62 130/67 Pulse Oximetry 91 93 91 05/09/22 07:54 05/09/22 08:03 05/09/22 11:26 Temperature 98.1 F 97.6 F Pulse Rate [Pulse Oximeter] 68 75 Respiratory Rate 12 12 14 Blood Pressure [Ri ght Arm] 140/80 H 132/73 Pulse Oximetry 95 93 94 05/09/22 15:00 05/09/22 20:14 Temperature 98.3 F 98.1 F Pulse Rate [Pulse Oximeter] 83 82 Respiratory Rate 14 18 Blood Pressure [Ri t Arm] 127/77 131/71 Pulse Oximetry 93 95 Labs Labs: Laboratory Results - last 24 hr 05/09/22 05/09/22 05/09/22 07:14 07:14 07:14 WBC 5.57 RBC 4.05 Hgb 12.5 Hct 37.8 MCV 93 MCH 31 MCHC 33 Plt Count 159 VBG pH 7.404 VBG pCO2 48 VBG pO2 41.0 VBG HCO3 30 H Sodium 136 Potassium 4.2 Chloride 105 Carbon Dioxide 31 BUN 28 Creatinine 0.6 Estimated Creat Clear 40.04 Glucose 136 H Calcium 8.7 Magnesium 1.9 Troponin I < 0.01 L C-Reactive Protein < 0.5 L NT-Pro-B Natriuret Pep 319 Procalcitonin 0.06
[2022-05-10 00:01] VITALS: PULSE 67; RESP 16; O2SAT 91
[2022-05-10] MEDS: OxyCODONE/APAP 5-325 TABLET 2 TAB PO ×3 (01:03→11:39)
[2022-05-10 04:00] VITALS: BP 141/87; PULSE 68; RESP 18; TEMP 36.5; O2SAT 95
--- NOTE | 2022-05-10 04:46 | PC.NURSE ---
Shift note -: Pt alert, up ad alejandra in room, gait steady w/ cane. Lungs clear, RA sats 94-96% awake and 87-91% sleeping. Pt plans to DC home w/ neighbor transport this am.
[2022-05-10] MEDS: LEVOTHYROXINE 25 MCG TABLET PO (05:57)
[2022-05-10] MEDS: LEVOTHYROXINE 112 MCG TABLET PO (05:57)
[2022-05-10 07:15] LABS: Hemoglobin* 12.9 gm/dL (12.0-16.0); Mean Corpuscular HGB Conc 33 gm/dL (32-36); Mean Corpuscular Hemoglobin 31 pg (26-34); Mean Corpuscular Volume 92 fL (80-100); Platelet Count* 173 K/uL (140-440); Red Blood Count 4.22 m/uL (4.00-5.20); White Blood Count* 7.46 K/uL (4.50-11.00)
[2022-05-10 07:17] LABS: Lactate* 1.2 mmol/L (0.5-1.9)
[2022-05-10 07:23] LABS: Slide Review Reflex No
[2022-05-10 07:47] LABS: Chloride* 102 mmol/L (96-114); Potassium* 3.7 mmol/L (3.6-5.1); Sodium* 136 mmol/L (135-149)
[2022-05-10 07:49] LABS: Creatinine* 0.6 mg/dL (0.5-1.5); Est. Creatinine Clearance* 40.04; Estimated Glomerular Filt Rate 91.82
[2022-05-10 07:50] LABS: Blood Urea Nitrogen* 25 mg/dL (7-30); Calcium* 8.6 mg/dL (8.4-10.6); Carbon Dioxide* 30 mmol/L (20-32); Glucose* 119 mg/dL (60-115)
[2022-05-10 07:51] LABS: Magnesium* 1.9 mg/dL (1.5-2.6)
[2022-05-10 07:58] LABS: NT Pro B Type NatriureticPept* 545 PG/mL (0-450)
[2022-05-10 08:05] LABS: C Reactive Protein* < 0.5 mg/dL (0.5-1.0); Troponin I* < 0.01 ng/mL (0.01-0.04)
[2022-05-10 09:16] VITALS: PULSE 59; PULSE 94; RESP 18
--- NOTE | 2022-05-10 10:06 | PC.NURSE ---
alert and oriented. ls clear. heart reg. no edema. states feeling much better and wanting to go home. up ad alejandra. paces activities well. no sob. vs wnl. sats 93-96 ra. jose po . denies n/v. chronic pain controlled as at home. instructions on using a chair to lean forward instead of inability to prone in bed.
--- NOTE | 2022-05-10 10:12 | PC.NURSE ---
states voided in good amt this am. refused to use urine collection container. discussed s/s dehydration.
[2022-05-10 10:19] VITALS: BP 126/79; PULSE 16; PULSE 62; RESP 14; TEMP 36.1; O2SAT 93
--- NOTE | 2022-05-10 17:16 | PM.DS1 ---
DS: Providers Provider Date of admission: 05/07/22 12:33 Primary care physician: Not a Local Provider Admitting Clinician: Mariana Lee MD Consults: 05/07/22 14:30 Consult to Physical Therapy [CONS] Routine Comment: Reason(s) for PT Consult:: Weakness Any Restrictions?:: No Restrictions 05/07/22 15:11 Consult to Physical Therapy [CONS] Routine Comment: Reason(s) for PT Consult:: Evaluate and Treat Any Restrictions?:: No Restrictions Consult to Respiratory Therapy [CONS] Routine Comment: Reason(s) for RT Consult:: Consult 05/07/22 15:16 Consult to Occupational Therapy [CONS] Routine Comment: Reason(s) for OT Consult:: Evaluate and Treat Any Restrictions?:: No Restrictions Attending Physician on discharge: Mariana Lee MD Date of Discharge: 05/10/22 DS: Diagnosis Discharge Diagnosis (1) Acute hypoxemic respiratory failure: Status: Acute Problem details: Secondary to COVID-19 infection (2) COVID-19: Status: Acute Problem details: Acute severe infection, symptoms began 05/03/2022. SARs CoV 2 PCR positive 05/07/2022. (3) Volume overload: Status: Acute Problem details: Mild (4) Lung nodule, multiple: Status: Acute Problem details: CT chest 05/07/22. Evidence of remote granulomatous infection. A few noncalcified nodules are identified largest of which measures 6 millimeters. A follow-up CT of the chest in 6 months is advised. (5) Weakness: Status: Acute Problem details: Secondary to COVID-19 infection. (6) Breath shortness: Status: Acute DS: Summary Hospital Course Hospital Course: Patient presented with acute hypoxemic respiratory failure, was already known to have COVID-19 infection, and was also found to have mild volume overloaded state. Was admitted to the hospital. Initially required low-flow oxygen therapy. Started on remdesivir. Completed 4 day therapy of the same. Treated with low dose of furosemide. Over the ensuing days she required less oxygen support. Has not required oxygen supplementation for greater than 24 hours prior to discharge. Appetite has normalized. Denies nausea or vomiting. Denies abdominal pain. Denies dyspnea at rest or dyspnea with exertion. Trace dry hacky cough only. Status at Discharge Cognitive/behavioral status at discharge: Cognition is intact. Functional status at discharge: independent ambulation Overall status at discharge: patient is back to baseline Time Spent with Patient Time attestation: Total time spent providing and/or coordinating discharge services: Time spent: Greater than 30 minutes Exam Narrative: Exam Narrative: Awake, alert, oriented to self, place, time, situation. Pleasant. Cooperative. Mood and affect are congruent. No JVD or hepatojugular reflux. Lungs are actually clear to auscultation. Heart tones with regular rhythm, normal S1-S2 Extremities without edema. Independent transfers, station, and gait. Const: Vital Signs, click to edit/add: Vital Signs - 24 hr 05/09/22 20:14 05/09/22 23:19 05/10/22 00:01 Temperature 98.1 F Pulse Rate [Bilate ral Dorsalis Pedis ] 67 Pulse Rate [Pulse Oximeter] 82 Respiratory Rate 18 16 Blood Pressure [Ri ght Arm] 131/71 Pulse Oximetry 95 93 91 05/10/22 04:00 05/10/22 09:16 05/10/22 10:19 Temperature 97.7 F 97 F L Pulse Rate [Bilate ral Dorsalis Pedis ] 59 L 62 Pulse Rate [Pulse Oximeter] 68 94 16 L Respiratory Rate 18 18 14 Blood Pressure [Ri ght Arm] 141/87 H 126/79 Pulse Oximetry 95 93 DS: Data Data Completed and Pending Labs on day of discharge: Labs from last 24 hours 05/10/22 05/10/22 05/10/22 06:57 06:57 06:57 WBC 7.46 RBC 4.22 Hgb 12.9 Hct 39.0 MCV 92 MCH 31 MCHC 33 Plt Count 173 Sodium 136 Potassium 3.7 Chloride 102 Carbon Dioxide 30 BUN 25 Creatinine 0.6 Estimated Creat Clear 40.04 Glucose 119 H Lactate 1.2 Calcium 8.6 Magnesium 1.9 Troponin I < 0.01 L C-Reactive Protein < 0.5 L NT-Pro-B Natriuret Pep 545 H Imaging Chest x-ray: Attestation: I have reviewed the pertinent imaging results. My impression: Initial chest x-ray suggests possible mild volume overloaded state. Radiologist's impression: Radiologist's impression concurs with mind. Discharge Plan Discharge Disposition: Home, Self-Care Date of Admission: 05/07/22 12:33 Attending Provider on Discharge: Phillip العراقي Primary Care Provider: Provider,Not a Local Condition: Improved Anticipated Discharge Date/Time: 05/10/22 13:00 Discharge Medications: Continued latanoprost 0.005 % drops 1 drp ophthalmic (eye) DAILY 0RF Label Comments: Instill 1 drop into both eyes at bedtime levothyroxine 137 mcg tablet 137 mcg PO DAILY 0RF Label Comments: TAKE 1 TABLET BY MOUTH BEFORE BREAKFAST simvastatin 40 mg tablet 40 mg PO HS 0RF Hold Instructions: held while on Paxlovid Label Comments: TAKE 1 TABLET BY MOUTH ONCE DAILY IN THE EVENING oxycodone-acetaminophen 5-325 mg tablet 2 tab PO Q4H PRN0RF lidocaine 5 % adhesive patch,medicated 1 patch topical Q24H PRN0RF Label Comments: USE 1 PATCH EXTERNALLY ONCE DAILY EVERY 12 HOURS WITHIN A 24HR PERIOD APPLY ON DRY , CLEAN, HAIRLESS SKIN gabapentin 300 mg capsule 300 mg PO HS 0RF Label Comments: TAKE 1 CAPSULE BY MOUTH THREE TIMES DAILY timolol maleate 0.5 % drops 1 drp OPHTHALMIC (EYE) HS 0RF oxycodone [OxyContin] 40 mg tablet,oral only,ext.rel.12 hr 40 mg PO DAILY 0RF docusate sodium [Colace] 100 mg capsule 100 mg PO HS 0RF Unisom (doxylamine) 25 mg tablet 12.5 mg PO HS PRN0RF biotin 2,500 mcg capsule 2,500 mcg PO DAILY 0RF Discontinued Paxlovid (EUA) 150 mg x 2- 100 mg tablet 3 tab PO BID 0RF Discharge Orders: Discharge Order (Routine); Ordered 05/10/22 Ordered By: Phillip العراقي Patient Education: COVID-19 (Coronavirus Disease 2019) (DC) Activity Level: No Restrictions and Activity as Tolerated Discharge Diet: Regular Follow Up Appointments: Provider,Not a Local [Primary Care Provider] - (Follow up in 1-2 weeks. You need a repeat CT scan of the chest in 6 months, to reassess pulmonary nodules.) [facility]: [facility]
== END 2022-05-10 11:55 | disposition home or self-care (01) | DRG 177 ==
LOC: ED 10:58 → MEDSURG 12:34
PROVIDERS: Family Medicine; Admitting Provider Family Medicine; Emergency Provider Family Medicine; Visit Provider Family Medicine
DX: U07.1 COVID-19 (principal); J96.01 Acute respiratory failure with hypoxia; M47.12 Other spondylosis with myelopathy, cervical region; R53.1 Weakness; R91.8 Other nonspecific abnormal finding of lung field; M47.22 Other spondylosis with radiculopathy, cervical region; E06.3 Autoimmune thyroiditis; G89.29 Other chronic pain; Z86.718 Personal history of other venous thrombosis and embolism; H40.9 Unspecified glaucoma; E78.5 Hyperlipidemia, unspecified; E03.9 Hypothyroidism, unspecified; E66.9 Obesity, unspecified; Z85.3 Personal history of malignant neoplasm of breast; M81.0 Age-related osteoporosis without current pathological fracture; Z87.891 Personal history of nicotine dependence
CPT/HCPCS: 36415; 71045; 71260; 80048; 80053; 82803; 83605; 83735; 83880; 84145; 84484; 85025; 85027; 86140; 87635; 93005; 94664; 94761; 97110; 97161; 97165; 97530; 99284; 99285; A9270; J1100; J1650; J2270; J7050; J7120; Q9967

== ENCOUNTER 2022-12-29 12:12 | Emergency (ER) | payer MEDICARE, BC, SELFPAY ==
[2022-12-29 12:22] VITALS: BP 135/82; PULSE 80; RESP 18; TEMP 36.6; O2SAT 96; BMI 24.0
--- NOTE | 2022-12-29 13:07 | CRLHL7_ITS ---
For Patients: As a result of the Century Cures Act, medical imaging exams and procedure reports are released immediately into your electronic medical record. You may view this report before your referring provider. If you have questions, please contact your health care provider. INDICATION: Back/abdominal pain. TECHNIQUE: CT abdomen and pelvis acquired with 69 cc Isovue 370 IV contrast. COMPARISON: None. FINDINGS: Lower chest: Unremarkable. Liver: Unremarkable. Normal in size and attenuation. No suspicious masses. Gallbladder and bile ducts: Absent. Intrahepatic biliary duct dilation, likely related to reservoir effect. Pancreas: Subtle hypodensity at the head of the pancreas, nonspecific. Spleen: Unremarkable. Normal in size. No masses. Adrenal glands: Unremarkable. No nodules. Kidneys: Nonobstructing stone at the inferior pole of the left kidney measuring approximately 3 millimeters in diameter. No hydronephrosis or hydroureter. GI tract: Above-average colonic stool volume. No bowel obstruction. Normal appendix. Vasculature: Abdominal aorta is normal in caliber. Mesenteric arteries are patent. Diffuse moderate to severe calcific atherosclerosis of the aorta and iliac vessels. Lymph nodes: No lymphadenopathy. Peritoneum/Abdominal Wall: Ventral abdominal fat and small bowel containing hernia. No sign of mass or infiltration. No free air or significant free fluid. Pelvis: Unremarkable. Bones: Diffuse demineralization of the visualized bones. Multilevel degenerative changes in the spine. Mild scoliosis of the spine. IMPRESSION: No acute intra-abdominal process identified. Subtle hypodensity at the head of the pancreas, nonspecific. Recommend further evaluation with outpatient MRI MRCP. Nonobstructing stone at the inferior pole of the left kidney. Status post cholecystectomy. Please note that all CT scans at this facility use dose modulation, iterative reconstruction, and/or weight-based dosing when appropriate to reduce radiation dose to as low as reasonably achievable. Dictated by Ligia Caldwell MD @ 12/29/2022 3:40:04 PM (Electronically Signed)
--- NOTE | 2022-12-29 13:16 | ED.GENADULT ---
HPI - General Adult General Chief complaint: Flank Pain Stated complaint: Back/flank pain Time Seen by Provider: 12/29/22 12:53 History of Present Illness HPI narrative: This 77-year-old female comes in reporting bilateral mid to lower back pain in the flank regions. She does not report any symptoms of dysuria. She does not describe any particular injury event or strenuous activity. She does have chronic pain for which she takes oxycodone daily. This chronic pain is different than what she comes in with. She states that this pain in her flank regions began 3 days ago. She rates that at 9/10 in severity. Related Data Home Medications Medication Instructions Recorded Confirmed biotin 2,500 mcg capsule 2,500 mcg PO DAILY 05/07/22 12/29/22 docusate sodium 100 mg capsule 100 mg PO HS 05/07/22 05/07/22 (Colace) doxylamine succinate 25 mg tablet 12.5 mg PO HS PRN 05/07/22 05/07/22 (Unisom (doxylamine)) gabapentin 300 mg capsule 300 mg PO HS 05/07/22 12/29/22 latanoprost 0.005 % eye drops 1 drp ophthalmic (eye) DAILY 05/07/22 05/07/22 levothyroxine 137 mcg tablet 137 mcg PO DAILY 05/07/22 12/29/22 lidocaine 5 % topical patch 1 patch topical Q24H PRN 05/07/22 05/07/22 oxycodone 40 mg tablet,crush 40 mg PO DAILY 05/07/22 12/29/22 resistant,extended release 12 hr (OxyContin) oxycodone-acetaminophen 5 mg-325 2 tab PO Q4H PRN 05/07/22 05/07/22 mg tablet simvastatin 40 mg tablet 40 mg PO HS 05/07/22 12/29/22 timolol maleate 0.5 % eye drops 1 drp ophthalmic (eye) HS 05/07/22 05/07/22 Previous Rx's Medication Instructions Recorded tizanidine 4 mg capsule (Zanaflex) 4 mg PO TID PRN muscle spasticity 12/29/22 #20 caps Allergies Allergy/AdvReac Type Severity Reaction Status Date / Time azithromycin Allergy Mild Nausea Verified 05/07/22 12:36 Sulfa (Sulfonamide Allergy Mild Nausea Verified 05/07/22 12:36 Antibiotics) Review of Systems Status of ROS: Reports: 10 or more systems reviewed and unremarkable except as noted in History and below Narrative: Constitutional: No fevers, no weight gain or loss. Eyes: No discharge. No vision changes. HENT: No congestion, no sore throat, no ear pain. Cardiovascular: No chest pain, no palpitations. Respiratory: No shortness of breath, no wheezes, no cough. Gastrointestinal: No abdominal pain, no vomiting, no diarrhea. Genitourinary: No dysuria, no hematuria. Musculoskeletal: Normal range of motion. She reports pain in her flank regions bilaterally. Skin: No rashes, no pruritis. Neurological: No dizziness, weakness, sensory change, speech change. Endo/Heme/Allergies: No bruising or bleeding. No polydipsia. Pysch: no suicidality, no anxiety, no insomnia. All other systems reviewed and are negative. [facility] Medical History Abnormal mammogram Arachnoiditis Cervical spondylosis with myelopathy and radiculopathy Chest pain Cholelithiasis Chronic lymphocytic thyroiditis Chronic pain Colon cancer screening Constipation COVID-19 vaccine administered Diverticulitis DVT (deep venous thrombosis) Elevated blood sugar Glaucoma H/O coronary angiogram Hyperlipidemia Hypothyroidism Insomnia Issue of repeat prescription Macular hole Malignant neoplasm of left breast Obesity (BMI 30.0-34.9) Osteoporosis Palpitations Rotator cuff syndrome of both shoulders Umbilical hernia without mention of obstruction or gangrene Surgical History H/O arthroscopy of shoulder H/O hernia repair H/O laminectomy Hx laparoscopic cholecystectomy S/P breast lumpectomy S/P rotator cuff repair Social History Problems where you live details: Lives alone Highest level of school completed/degree received: Associate degree: academic program Smoking Status: Former smoker What tobacco products do you use: cigarettes Smoking packs per day: 1 Smoking cigarettes per day: 20.0 Years smoked: 25 Smoking pack-years: 25.00 Smoking quit date/years: >15 years ago Do you use any of these nicotine containing products: None Nicotine containing products detail: quit 25 years ago Second hand tobacco smoke exposure: No How often do you have a drink containing alcohol: monthly or less Alcohol type: wine Alcohol type details: 1 glass wine every 2-3 months. AUDIT-C Alcohol total score: 1 Non-prescribed substance use: denies use Caffeine: Yes service: No Exam Narrative: Exam Narrative: Constitutional: Well-developed, well-nourished, no acute distress. HEENT: Normocephalic, atraumatic. Neck: Normal range of motion. Nontender. Supple. Heart: Regular. No murmurs. Normal rate. Intact distal pulses. Lungs: Clear to auscultation. No chest discomfort. No wheezes, rhonchi, or rales. Abdomen: Normal bowel sounds. Mild tenderness diffusely in the abdomen. No rebound tenderness. Genitalia: Deferred. Back: No midline tenderness. Bilateral flank tenderness. Extremities: Normal range of motion. No injury. Skin: Intact. No rash. Warm. No erythema or pallor. Neurologic: No altered sensation. No weakness. Alert and oriented. Psychiatric: No suicidality. No anxiety or depression. No insomnia. Nursing notes and vitals signs are reviewed. Const: Vital Signs, click to edit/add: Vital Signs - 24 hr 12/29/22 12:22 12/29/22 15:44 Temperature 97.8 F 97.1 F L Pulse Rate [Right Pulse Oximeter] 80 88 Respiratory Rate 18 16 Blood Pressure [Ri ght Upper Arm] 135/82 126/88 Pulse Oximetry 96 93 Oxygen Delivery Me thod Room Air Room Air Course Vital Signs Vital signs: Initial Vital Signs Temperature 97.8 F 12/29/22 12:22 Temperature Source Temporal Artery Scan 12/29/22 12:22 Pulse Rate 80 12/29/22 12:22 Pulse Rhythm 12/29/22 12:22 Respiratory Rate 18 12/29/22 12:22 Blood Pressure 135/82 12/29/22 12:22 Blood Pressure Mean 99 12/29/22 12:22 Blood Pressure Position Sitting 12/29/22 12:22 Pulse Oximetry 96 12/29/22 12:22 Oxygen Delivery Method 12/29/22 12:22 Vital Signs Temperature 97.8 F 12/29/22 12:22 Pulse Rate 80 12/29/22 12:22 Respiratory Rate 18 12/29/22 12:22 Blood Pressure 135/82 12/29/22 12:22 Pulse Oximetry 96 12/29/22 12:22 Oxygen Delivery Method 12/29/22 12:22 Temperature 97.1 F L 12/29/22 15:44 Pulse Rate 88 12/29/22 15:44 Respiratory Rate 16 12/29/22 15:44 Blood Pressure 126/88 12/29/22 15:44 Pulse Oximetry 93 12/29/22 15:44 Oxygen Delivery Method 12/29/22 15:44 Medical Decision Making MDM Narrative Medical decision making narrative: This patient comes in with bilateral flank pain as described above. She does not report any injury event or strenuous activity but does have a history of chronic back problems. She wonders if she might have a urinary tract infection and does report a prior history of diverticulitis. An IV was established and labs were drawn. Labs return with normal results. Urinalysis also shows no sign of infection however there is microscopic hematuria. CT imaging of the abdomen and pelvis does show nonobstructive stone in the kidney and a subtle hypodensity of the pancreatic head. There are no findings that explain this patient's pain except for an obvious scoliosis which of course is not new. It seems that this could very likely be causing her pain as it is at the level of the discomfort she is describing and there are degenerative changes. The patient did receive an IV dose of Dilaudid 0.5 mg and Zofran 4 mg. This brought relief to her symptoms. She is okay to be discharged home she does have chronic pain management with opioids. I did prescribe Zanaflex for additional relief. She states that she has an appointment with a pain clinic and may be getting a pain pump in a few weeks. Lab Data Labs: Lab Results 12/29/22 12/29/22 12/29/22 Range/Units 13:29 13:40 13:40 WBC 11.42 H (4.50-11.00) K/uL RBC 4.43 (4.00-5.20) m/uL Hgb 14.1 (12.0-16.0) gm/dL Hct 43.7 (33.0-51.0) % MCV 99 (80-100) fL MCH 32 (26-34) pg MCHC 32 (32-36) gm/dL RDW Coeff of Pepe 12.9 (11.5-15.5) % Plt Count 213 (140-440) K/uL Neut % (Auto) 69.7 (42.0-72.0) % Lymph % (Auto) 20.4 (20-44) % [place] % (Auto) 6.8 (0.0-11.0) % Eos % (Auto) 2.4 (0.0-7.0) % Baso % (Auto) 0.4 (0.0-3.0) % Neut # (Auto) 8.00 H (1.7-7.0) K/uL Lymph # (Auto) 2.30 (0.90-2.90) K/uL [place] # (Auto) 0.80 (0.00-0.90) K/UL Eos # (Auto) 0.30 (0.00-0.50) K/uL Baso # (Auto) 0.00 (0.00-0.30) K/uL Sodium 137 (135-149) mmol/L Potassium 3.8 (3.6-5.1) mmol/L Chloride 103 (96-114) mmol/L Carbon Dioxide 28 (20-32) mmol/L BUN 15 (7-30) mg/dL Creatinine 0.6 (0.5-1.5) mg/dL Estimated Creat Clear 39.39 Estimated GFR 91 ml/min Glucose 101 (60-115) mg/dL Calcium 9.2 (8.4-10.6) mg/dL Urine Color Yellow (Yellow) Urine Appearance Clear (Clear) Urine pH 6.5 (5.0-8.5) Ur Specific [place] 1.015 (1.000-1.030) Urine Protein Negative (Negative) Urine Glucose (UA) Negative (Negative) Urine Ketones Negative (Negative) Urine Blood Trace-intact A (Negative) Urine Nitrite Negative (Negative) Urine Bilirubin Negative (Negative) Urine Urobilinogen 0.2 (0.2-1.0) Ur Leukocyte Esterase Trace A (Negative) Urine RBC 0-2 (0-2) Urine WBC 0-2 (0-5) Ur Squamous Epith Cells Many A (None-Few) Amorphous Sediment Few A (None) Urine Bacteria Few A (None) Imaging Data CT scan - abdomen: Radiologist's impression: Subtle hypodensity at the head of the pancreas, nonspecific. Recommend further evaluation with outpatient MRI MRCP. Nonobstructing stone at the inferior pole of the left kidney. Status post cholecystectomy. Discharge Plan Discharge Clinical Impression: Scoliosis, Back pain, Degenerative disc disease Patient Disposition: Home, Self-Care Condition: Stable Additional Instructions: Continue current plans. Take prescribed medicine as needed and indicated. Follow up with MD as scheduled or sooner if needed. Return if worsening. Prescriptions: New tizanidine [Zanaflex] 4 mg capsule 4 mg PO TID PRN (Reason: muscle spasticity) Qty: 20 0RF No Action latanoprost 0.005 % drops 1 drp ophthalmic (eye) DAILY Label Comments: Instill 1 drop into both eyes at bedtime levothyroxine 137 mcg tablet 137 mcg PO DAILY Label Comments: TAKE 1 TABLET BY MOUTH BEFORE BREAKFAST simvastatin 40 mg tablet 40 mg PO HS Hold Instructions: held while on Paxlovid Label Comments: TAKE 1 TABLET BY MOUTH ONCE DAILY IN THE EVENING oxycodone-acetaminophen 5-325 mg tablet 2 tab PO Q4H PRN lidocaine 5 % adhesive patch,medicated 1 patch topical Q24H PRN Label Comments: USE 1 PATCH EXTERNALLY ONCE DAILY EVERY 12 HOURS WITHIN A 24HR PERIOD APPLY ON DRY , CLEAN, HAIRLESS SKIN gabapentin 300 mg capsule 300 mg PO HS Label Comments: TAKE 1 CAPSULE BY MOUTH THREE TIMES DAILY timolol maleate 0.5 % drops 1 drp OPHTHALMIC (EYE) HS oxycodone [OxyContin] 40 mg tablet,oral only,ext.rel.12 hr 40 mg PO DAILY docusate sodium [Colace] 100 mg capsule 100 mg PO HS Unisom (doxylamine) 25 mg tablet 12.5 mg PO HS PRN biotin 2,500 mcg capsule 2,500 mcg PO DAILY Follow Up/Referrals: Provider,Not a Local [Primary Care Provider] - Stand Alone Forms: [facility] Info Instructions
[2022-12-29 13:39] LABS: Appearance Urine Clear (Clear); Bilirubin Urine Negative (Negative); Blood Urine Trace-intact (Negative); Color Urine Yellow (Yellow); Glucose Urine Negative (Negative); Ketones Urine Negative (Negative); Leukocyte Esterase Urine Trace (Negative); Nitrite Urine Negative (Negative); Protein Urine Negative (Negative); Specific Gravity Urine 1.015 (1.000-1.030); Urobilinogen Urine 0.2 (0.2-1.0); pH Urine 6.5 (5.0-8.5)
[2022-12-29] MEDS: ONDANSETRON 2 MG/ML inj 4 MG IVP (13:44)
[2022-12-29] MEDS: HYDROmorphone 0.5 mg/0.5 ml inj IVP (13:44)
[2022-12-29 13:57] LABS: Basophils Percent Auto 0.4 % (0.0-3.0); Eosinophils Percent Auto 2.4 % (0.0-7.0); Hematocrit 43.7 % (33.0-51.0); Hemoglobin* 14.1 gm/dL (12.0-16.0); Immature Granulocytes Pct Auto 0.3 %; Lymphocytes Percent Auto 20.4 % (20-44); Mean Corpuscular HGB Conc 32 gm/dL (32-36); Mean Corpuscular Hemoglobin 32 pg (26-34); Mean Corpuscular Volume 99 fL (80-100); Monocytes Percent Auto 6.8 % (0.0-11.0); Neutrophils Percent Auto 69.7 % (42.0-72.0); Platelet Count* 213 K/uL (140-440); RDW Coefficient of Variation % 12.9 % (11.5-15.5); Red Blood Count 4.43 m/uL (4.00-5.20); White Blood Count* 11.42 K/uL (4.50-11.00)
[2022-12-29 13:59] LABS: Slide Review Reflex No
[2022-12-29 14:06] LABS: Amorphous Sediment Urine Few; Bacteria Urine Few; RBC Urine 0-2 (0-2); Squamous Epithelial Cell Urine Many (None-Few); WBC Urine 0-2 (0-5)
[2022-12-29 14:15] LABS: Chloride* 103 mmol/L (96-114); Potassium* 3.8 mmol/L (3.6-5.1); Sodium* 137 mmol/L (135-149)
[2022-12-29 14:17] LABS: Creatinine* 0.6 mg/dL (0.5-1.5); Est. Creatinine Clearance* 39.39; Estimated Glomerular Filt Rate 91 ml/min
[2022-12-29 14:18] LABS: Blood Urea Nitrogen* 15 mg/dL (7-30); Calcium* 9.2 mg/dL (8.4-10.6); Carbon Dioxide* 28 mmol/L (20-32); Glucose* 101 mg/dL (60-115)
[2022-12-29 15:44] VITALS: BP 126/88; PULSE 88; RESP 16; TEMP 36.2; O2SAT 93
== END 2022-12-29 16:33 | disposition home or self-care (01) ==
PROVIDERS: Emergency Provider Emergency Medicine Emergency Medical Services
DX: M41.9 Scoliosis, unspecified (principal); M51.36 Other intervertebral disc degeneration, lumbar region
CPT/HCPCS: 36415; 74177; 80048; 81001; 85025; 87086; 96374; 96375; 99284; J1170; J2405; Q9967

== ENCOUNTER 2024-02-29 17:28 | Inpatient (IN) | payer MEDICARE, BC, SELFPAY ==
--- NOTE | 2024-02-29 17:53 | ED_ITS ---
HPI - General Adult General Date Seen: 02/29/24 Chief complaint: Skin/Abscess/Foreign Body Stated complaint: Gauze stuck in throat Time Seen by Provider: 02/29/24 17:45 Source: patient Mode of arrival: ambulatory Limitations: no limitations History of Present Illness HPI narrative: Number patient is an 78-year-old female presenting to the emergency department after swallowing some gauze. She was at the dentist earlier today and had a molar removed. The area was packed with gauze and then with 30-45 minutes prior to arrival she was eating when she accidentally swallowed the gauze. Since then she has been unable to eat or drink anything but has been tolerating secretions. Patient states she feels like the gauze is just above her sternal notch. Of note the patient is currently on oxygen via EMS. She is having the upper 80s when they arrived. She states she has not feel short of breath and does not have any chest pain. She is not on oxygen at home. We took her off oxygen in the emergency department and once there was a good waveform she was satting in the upper 90s for short time and then started to desat again. Related Data Home Medications Medication Instructions Recorded Confirmed biotin 2,500 mcg capsule 2,500 mcg PO DAILY 05/07/22 12/29/22 docusate sodium 100 mg capsule 100 mg PO HS 05/07/22 05/07/22 (Colace) doxylamine succinate 25 mg tablet 12.5 mg PO HS PRN 05/07/22 05/07/22 (Unisom (doxylamine)) gabapentin 300 mg capsule 300 mg PO HS 05/07/22 12/29/22 latanoprost 0.005 % eye drops 1 drp ophthalmic (eye) DAILY 05/07/22 05/07/22 levothyroxine 137 mcg tablet 137 mcg PO DAILY 05/07/22 12/29/22 lidocaine 5 % topical patch 1 patch topical Q24H PRN 05/07/22 05/07/22 oxycodone 40 mg tablet,crush 40 mg PO DAILY 05/07/22 12/29/22 resistant,extended release 12 hr (OxyContin) oxycodone-acetaminophen 5 mg-325 2 tab PO Q4H PRN 05/07/22 05/07/22 mg tablet simvastatin 40 mg tablet 40 mg PO HS 05/07/22 12/29/22 timolol maleate 0.5 % eye drops 1 drp ophthalmic (eye) HS 05/07/22 05/07/22 Previous Rx's Medication Instructions Recorded tizanidine 4 mg capsule (Zanaflex) 4 mg PO TID PRN muscle spasticity 12/29/22 #20 caps Allergies Allergy/AdvReac Type Severity Reaction Status Date / Time azithromycin Allergy Mild Nausea Verified 02/29/24 19:39 Sulfa (Sulfonamide Allergy Mild Nausea Verified 02/29/24 19:39 Antibiotics) Review of Systems Status of ROS: Reports: 10 or more systems reviewed and unremarkable except as noted in History and below [facility] Medical History Osteoporosis ?M81.0 - Age-related osteoporosis without current pathological fracture (ICD- 10) H/O coronary angiogram ?Z98.890 - Other specified postprocedural states (ICD-10) Macular hole ?H35.349 - Macular cyst, hole, or pseudohole, unspecified eye (ICD-10) COVID-19 vaccine administered ?Z23 - Encounter for immunization (ICD-10) Elevated blood sugar ?R73.9 - Hyperglycemia, unspecified (ICD-10) Obesity (BMI 30.0-34.9) ?E66.9 - Obesity, unspecified (ICD-10) Constipation ?K59.00 - Constipation, unspecified (ICD-10) Cervical spondylosis with myelopathy and radiculopathy ?M47.12 - Other spondylosis with myelopathy, cervical region (ICD-10) ?M47.22 - Other spondylosis with radiculopathy, cervical region (ICD-10) Glaucoma ?H40.9 - Unspecified glaucoma (ICD-10) Insomnia ?G47.00 - Insomnia, unspecified (ICD-10) Malignant neoplasm of left breast ?C50.912 - Malignant neoplasm of unspecified site of left female breast (ICD- 10) Colon cancer screening ?Z12.11 - Encounter for screening for malignant neoplasm of colon (ICD-10) Chest pain ?R07.9 - Chest pain, unspecified (ICD-10) Palpitations ?R00.2 - Palpitations (ICD-10) Umbilical hernia without mention of obstruction or gangrene ?K42.9 - Umbilical hernia without obstruction or gangrene (ICD-10) Issue of repeat prescription ?Z76.0 - Encounter for issue of repeat prescription (ICD-10) Abnormal mammogram ?R92.8 - Other abnormal and inconclusive findings on diagnostic imaging of breast (ICD-10) DVT (deep venous thrombosis) ?I82.409 - Acute embolism and thrombosis of unspecified deep veins of unspecified lower extremity (ICD-10) Cholelithiasis ?K80.20 - Calculus of gallbladder without cholecystitis without obstruction (ICD-10) Rotator cuff syndrome of both shoulders ?M75.101 - Unspecified rotator cuff tear or rupture of right shoulder, not specified as traumatic (ICD-10) ?M75.102 - Unspecified rotator cuff tear or rupture of left shoulder, not specified as traumatic (ICD-10) Chronic lymphocytic thyroiditis ?E06.3 - Autoimmune thyroiditis (ICD-10) Diverticulitis ?K57.92 - Diverticulitis of intestine, part unspecified, without perforation or abscess without bleeding (ICD-10) Hyperlipidemia ?E78.5 - Hyperlipidemia, unspecified (ICD-10) Hypothyroidism ?E03.9 - Hypothyroidism, unspecified (ICD-10) Chronic pain ?G89.29 - Other chronic pain (ICD-10) Arachnoiditis ?G03.9 - Meningitis, unspecified (ICD-10) Surgical History S/P rotator cuff repair ?Z98.890 - Other specified postprocedural states (ICD-10) H/O arthroscopy of shoulder ?Z98.890 - Other specified postprocedural states (ICD-10) H/O hernia repair ?Z98.890 - Other specified postprocedural states (ICD-10) ?Z87.19 - Personal history of other diseases of the digestive system (ICD-10) Hx laparoscopic cholecystectomy ?Z90.49 - Acquired absence of other specified parts of digestive tract (ICD- 10) S/P breast lumpectomy ?Z98.890 - Other specified postprocedural states (ICD-10) H/O laminectomy ?Z98.890 - Other specified postprocedural states (ICD-10) Social History Problems where you live details: Lives alone Highest level of school completed/degree received: Associate degree: academic program Smoking Status: Former smoker What tobacco products do you use: cigarettes Smoking packs per day: 1 Smoking cigarettes per day: 20.0 Years smoked: 25 Smoking pack-years: 25.00 Smoking quit date/years: >15 years ago Do you use any of these nicotine containing products: None Nicotine containing products detail: quit 25 years ago Second hand tobacco smoke exposure: No How often do you have a drink containing alcohol: monthly or less Alcohol type: wine Alcohol type details: 1 glass wine every 2-3 months. AUDIT-C Alcohol total score: 1 Non-prescribed substance use: denies use Caffeine: Yes service: No Exam Narrative: Exam Narrative: Const: Well-nourished, Well-developed, in mild distress Eyes: PERRL, no conjunctival injection, and symmetrical lids HENT: Atraumatic external nose and ears. Moist mucous membranes. Cannot visua lize foreign body on exam Neck: Symmetric, trachea midline, No thyromegaly. MSK:Extremities w/o deformity, Normal Active ROM Skin: Warm, Dry. No rashes or lesions. Neuro: Normal Muscle tone, No focal neurological deficits. Psych: Awake, Alert, & Oriented x3. Appropriate mood and affect. Const: Vital Signs, click to edit/add: Vital Signs - 24 hr 02/29/24 18:10 02/29/24 21:51 02/29/24 22:00 Temperature 98.4 F 98.0 F 97.4 F L Pulse Rate [Right Pulse Oximeter] 92 80 90 Respiratory Rate 18 16 16 Blood Pressure [Ri ght Upper Arm] 118/75 124/72 154/85 H Pulse Oximetry 95 74 L 98 Oxygen Delivery Me thod Room Air Room Air Room Air Course Vital Signs Vital signs: Initial Vital Signs Temperature 98.4 F 02/29/24 18:10 Temperature Source Temporal Artery Scan 02/29/24 18:10 Pulse Rate 92 02/29/24 18:10 Respiratory Rate 18 02/29/24 18:10 Blood Pressure 118/75 02/29/24 18:10 Blood Pressure Mean 89 02/29/24 18:10 Blood Pressure Position Sitting 02/29/24 18:10 Pulse Oximetry 95 02/29/24 18:10 Oxygen Delivery Method Room Air 02/29/24 18:10 Vital Signs Temperature 98.4 F 02/29/24 18:10 Pulse Rate 92 02/29/24 18:10 Respiratory Rate 18 02/29/24 18:10 Blood Pressure 118/75 02/29/24 18:10 Pulse Oximetry 95 02/29/24 18:10 Oxygen Delivery Method Room Air 02/29/24 18:10 Temperature 97.4 F L 02/29/24 22:00 Pulse Rate 90 02/29/24 22:00 Respiratory Rate 16 02/29/24 22:00 Blood Pressure 154/85 H 02/29/24 22:00 Pulse Oximetry 98 02/29/24 22:00 Oxygen Delivery Method Room Air 02/29/24 22:00 Medical Decision Making MDM Narrative Medical decision making narrative: Patient is an 78-year-old female presenting to the emergency department for a foreign body in her esophagus. She is tolerating secretions but cannot take any p.o. liquids at this time. She is otherwise tolerating staff well and will be given he glucagon and Zofran along with EZ gas to try and past the obstruction. After this she was feeling much better and states she feels like it is passed. She did successfully had a p.o. challenge. While we are monitoring her she continued to be in the 70s to 80s on room air. When we put her on 2-3 L of oxygen she jump into the 90s. When she would have hypoxia she was asymptomatic and despite being 70% her heart rate would stay in the 70s to 80s in her respiratory rate would stay about 14 the 16 on the monitor. She would say she is not feeling any symptoms at this time and even ambulated without any symptoms developing. I to not know why she is short of breath like this. She is a former smoker but quit 30+ years ago in lung sound clear on auscultation. Will order a broad workup including CBC, BMP, troponin, EKG, BNP. Wells do a CTA of her chest look for signs of a pulmonary embolism or other abnormalities. All other lab work returned showing no concerning abnormalities. Her BNP is slightly elevated at 3600 but she is otherwise having no lower extremity edema and no clear signs of CHF exacerbation. COVID/flu/RSV is negative. CT of the chest shows a pulmonary nodule that they recommended 6-12 month follow-up on. Since she was asymptomatic despite low oxygen level was is decided to take her off the oxygen for extended period of time and then ambulate her and do an ABG. She was agreeable to this. She continued to be hypoxic while ambulating and we tried several different areas including multiple fingers and forehead check her oxygen level and got good waveforms with all of them. We will splint capnography and it was both 31 on average. ABG was then done and showed severe hypoxemia. While this could have been a venous blood gas considering respiratory was not available do it I still think we need to keep her in the hospital to get this redone tomorrow and to monitor overnight. She is agreeable to this plan. Her EKG did have diffuse T-wave inversions and a repeat troponin was done that was consistent with previous troponins. Lab Data Labs: Lab Results 02/29/24 02/29/24 02/29/24 Range/Units 18:49 19:02 21:40 WBC 8.28 (4.50-11.00) K/uL RBC 4.27 (4.00-5.20) m/uL Hgb 12.8 (12.0-16.0) gm/dL Hct 41.1 (33.0-51.0) % MCV 96 (80-100) fL MCH 30 (26-34) pg MCHC 31 L (32-36) gm/dL RDW Coeff of Pepe 13.8 (11.5-15.5) % Plt Count 199 (140-440) K/uL Neut % (Auto) 69.6 (42.0-72.0) % Lymph % (Auto) 19.4 L (20-44) % Moore % (Auto) 7.6 (0.0-11.0) % Eos % (Auto) 3.1 (0.0-7.0) % Baso % (Auto) 0.2 (0.0-3.0) % Neut # (Auto) 5.75 (1.7-7.0) K/uL Lymph # (Auto) 1.60 (0.90-2.90) K/uL Moore # (Auto) 0.60 (0.00-0.90) K/UL Eos # (Auto) 0.26 (0.00-0.50) K/uL Baso # (Auto) 0.02 (0.00-0.30) K/uL Abs Immat Gran (auto) 0.01 (0.00-0.30) K/uL Imm/Tot Granulo (auto) 0.1 % ABG pH 7.38 (7.35-7.45) ABG pCO2 46 H (35-45) mmHG ABG pO2 37.6 L* (80-105) mmHG ABG HCO3 28 (21-28) mmol/L ABG Total CO2 25 (21-30) mmol/l ABG O2 Saturation 70 L (92-100) % ABG Base Excess 1.8 (-3.0-3.0) mmol/L Carboxyhemoglobin 1.5 (0.0-5.0) % Sodium 139 (135-149) mmol/L Potassium 3.7 (3.6-5.1) mmol/L Chloride 108 (96-114) mmol/L Carbon Dioxide 29 (20-32) mmol/L Anion Gap 2 L (7-15) mEq/L BUN 16 (7-30) mg/dL Creatinine 0.6 (0.5-1.5) mg/dL Estimated Creat Clear 38.75 Estimated GFR 91 ml/min Glucose 136 H (60-115) mg/dL Calcium 9.2 (8.4-10.6) mg/dL Troponin I < 0.01 L (0.01-0.04) ng/mL NT-Pro-B Natriuret Pep 3620 pg/mL SARS-CoV-2 (PCR) Negative SARS-CoV-2 (Negative) Influenza Type A (PCR) Negative PCR FLU A (Negative) Influenza Type B (PCR) Negative PCR FLU B (Negative) RSV (PCR) Negative PCR RSV (Negative) POC Creatinine 0.6 (0.6-1.3) mg/dl POC Troponin I 0.01 (0.01-0.04) ng/ml 02/29/24 Range/Units 21:51 WBC (4.50-11.00) K/uL RBC (4.00-5.20) m/uL Hgb (12.0-16.0) gm/dL Hct (33.0-51.0) % MCV (80-100) fL MCH (26-34) pg MCHC (32-36) gm/dL RDW Coeff of Pepe (11.5-15.5) % Plt Count (140-440) K/uL Neut % (Auto) (42.0-72.0) % Lymph % (Auto) (20-44) % Moore % (Auto) (0.0-11.0) % Eos % (Auto) (0.0-7.0) % Baso % (Auto) (0.0-3.0) % Neut # (Auto) (1.7-7.0) K/uL Lymph # (Auto) (0.90-2.90) K/uL Moore # (Auto) (0.00-0.90) K/UL Eos # (Auto) (0.00-0.50) K/uL Baso # (Auto) (0.00-0.30) K/uL Abs Immat Gran (auto) (0.00-0.30) K/uL Imm/Tot Granulo (auto) % ABG pH (7.35-7.45) ABG pCO2 (35-45) mmHG ABG pO2 (80-105) mmHG ABG HCO3 (21-28) mmol/L ABG Total CO2 (21-30) mmol/l ABG O2 Saturation (92-100) % ABG Base Excess (-3.0-3.0) mmol/L Carboxyhemoglobin (0.0-5.0) % Sodium (135-149) mmol/L Potassium (3.6-5.1) mmol/L Chloride (96-114) mmol/L Carbon Dioxide (20-32) mmol/L Anion Gap (7-15) mEq/L BUN (7-30) mg/dL Creatinine (0.5-1.5) mg/dL Estimated Creat Clear Estimated GFR ml/min Glucose (60-115) mg/dL Calcium (8.4-10.6) mg/dL Troponin I (0.01-0.04) ng/mL NT-Pro-B Natriuret Pep pg/mL SARS-CoV-2 (PCR) (Negative) Influenza Type A (PCR) (Negative) Influenza Type B (PCR) (Negative) RSV (PCR) (Negative) POC Creatinine (0.6-1.3) mg/dl POC Troponin I 0.01 (0.01-0.04) ng/ml Imaging Data CTA chest: Attestation: I have reviewed the pertinent imaging results. Radiologist's impression: 1. No pulmonary embolism. No acute findings in the chest. 2. New versus increased size of an 8 mm left lower lobe pulmonary nodule. Recommend follow-up chest CT in 6-12 months to evaluate for interval change. Please note that all CT scans at this facility use dose modulation, iterative reconstruction, and/or weight-based dosing when appropriate to reduce radiation dose to as low as reasonably achievable. Dictated by Marito Ayala MD @ 02/29/2024 8:26:26 PM ECG Data Attestation: I personally reviewed and interpreted this ECG as follows: Interpretation: Normal sinus rhythm with a rate of 75 beats per minute, normal intervals, indeterminate axis, diffuse T-wave inversions. No ST abnormalities. Appears similar to previous EKGs on file other than the new T-wave inversions. Discharge Plan Discharge Clinical Impression: Hypoxia, Esophageal foreign body Patient Disposition: Admitted As Observation Condition: Improved
[2024-02-29] MEDS: ONDANSETRON 2 MG/ML inj 4 MG IVP (18:00)
[2024-02-29] MEDS: SIMETHICONE/SOD BICARB/CIT AC 1 EACH GRAN.EF.PK PO (18:00)
[2024-02-29] MEDS: GLUCAGON,HUMAN RECOMBINANT 1 MG/ML VIAL IV (18:00)
[2024-02-29 18:10] VITALS: BP 118/75; PULSE 92; RESP 18; TEMP 36.9; O2SAT 95; BMI 23.2
--- NOTE | 2024-02-29 18:41 | CT_ITS ---
Patient: BOUBACAR HOLM Facility:?[facility] Patient ID:?[id number] Site Patient ID:?[id number]. Site :?[id number] Study:?CT-Chest W/ 95CC ISOVUE-370 PE PROTOCOL-02/29/2024 7:47:55 PM Ordering Physician:Kalpesh Martell Final Report: INDICATION: Shortness of breath. TECHNIQUE: CT chest PE was acquired with 95 cc Isovue 370 IV contrast. COMPARISON: 05/07/2022. FINDINGS: Heart and vasculature: Contrast opacification of the pulmonary arterial tree is adequate. No sign of pulmonary embolism. Heart size is normal. Mildly enlarged main pulmonary artery measuring 3.3 cm. Normal caliber thoracic aorta. Mild coronary artery, aortic valve, and mitral annulus calcification. Lungs and pleura: Moderate bilateral upper lobe predominant centrilobular emphysema. Scattered reticular opacities, likely atelectasis and/or scarring throughout the lungs, though predominantly in the lung bases. 8 mm left lower lobe pulmonary nodule (5/130), new versus increased since the previous CT. Azygous lobe. No pleural effusions or pneumothorax. Small right upper lobe calcified granuloma. Lymph nodes/mediastinum: Small calcified right hilar lymph nodes. Chest wall: Unchanged left breast calcifications. Upper abdomen: No acute or significant findings. Bones: Unremarkable for age. IMPRESSION: 1. No pulmonary embolism. No acute findings in the chest. 2. New versus increased size of an 8 mm left lower lobe pulmonary nodule. Recommend follow-up chest CT in 6-12 months to evaluate for interval change. Please note that all CT scans at this facility use dose modulation, iterative reconstruction, and/or weight-based dosing when appropriate to reduce radiation dose to as low as reasonably achievable. Dictated by Marito Ayala MD @ 02/29/2024 8:26:26 PM Signed by:?Marito Ayala MD @02/29/2024 8:26:26 PM (Electronic Signature)
[2024-02-29 19:11] LABS: Creatinine, Point-of-Care* 0.6 mg/dl (0.6-1.3)
[2024-02-29 19:17] LABS: Basophils Absolute Auto 0.02 K/uL (0.00-0.30); Basophils Percent Auto 0.2 % (0.0-3.0); Eosinophils Absolute Auto 0.26 K/uL (0.00-0.50); Eosinophils Percent Auto 3.1 % (0.0-7.0); Hematocrit 41.1 % (33.0-51.0); Hemoglobin* 12.8 gm/dL (12.0-16.0); Immature Granulocytes Abs Auto 0.01 K/uL (0.00-0.30); Immature Granulocytes Pct Auto 0.1 %; Lymphocytes Percent Auto 19.4 % (20-44); Mean Corpuscular HGB Conc 31 gm/dL (32-36); Mean Corpuscular Hemoglobin 30 pg (26-34); Mean Corpuscular Volume 96 fL (80-100); Monocytes Percent Auto 7.6 % (0.0-11.0); Neutrophils Absolute Auto 5.75 K/uL (1.7-7.0); Neutrophils Percent Auto 69.6 % (42.0-72.0); Platelet Count* 199 K/uL (140-440); RDW Coefficient of Variation % 13.8 % (11.5-15.5); Red Blood Count 4.27 m/uL (4.00-5.20); White Blood Count* 8.28 K/uL (4.50-11.00)
[2024-02-29 19:25] LABS: Slide Review Reflex No
[2024-02-29 19:28] LABS: Chloride* 108 mmol/L (96-114); Potassium* 3.7 mmol/L (3.6-5.1); Sodium* 139 mmol/L (135-149)
[2024-02-29 19:29] LABS: PCR FLU A Negative PCR FLU A (Negative); PCR FLU B Negative PCR FLU B (Negative); PCR RSV Negative PCR RSV (Negative); SARS PCR* Negative SARS-CoV-2 (Negative)
[2024-02-29 19:31] LABS: Anion Gap 2 mEq/L (7-15); Blood Urea Nitrogen* 16 mg/dL (7-30); Carbon Dioxide* 29 mmol/L (20-32); Creatinine* 0.6 mg/dL (0.5-1.5); Est. Creatinine Clearance* 38.75; Estimated Glomerular Filt Rate 91 ml/min; Glucose* 136 mg/dL (60-115)
[2024-02-29 19:32] LABS: Calcium* 9.2 mg/dL (8.4-10.6)
[2024-02-29 19:37] LABS: Troponin, Point-of-Care* 0.01 ng/ml (0.01-0.04)
[2024-02-29 19:43] LABS: NT Pro B Type NatriureticPept* 3620 pg/mL
[2024-02-29 19:44] LABS: Troponin I* < 0.01 ng/mL (0.01-0.04)
[2024-02-29 21:48] LABS: ABG PCO2 46 mmHG (35-45); Base Excess ABG 1.8 mmol/L (-3.0-3.0); Carboxyhemoglobin* 1.5 % (0.0-5.0); HCO3 ABG 28 mmol/L (21-28); Oxygen Saturation ABG 70 % (92-100); TCO2 ABG 25 mmol/l (21-30); pH ABG 7.38 (7.35-7.45)
[2024-02-29 21:51] VITALS: BP 124/72; PULSE 80; RESP 16; TEMP 36.7; O2SAT 74
[2024-02-29 21:55] LABS: PO2 ABG 37.6 mmHG (80-105)
[2024-02-29 22:00] VITALS: PULSE 90
[2024-02-29 22:07] LABS: Troponin, Point-of-Care* 0.01 ng/ml (0.01-0.04)
--- NOTE | 2024-02-29 22:33 | P.IMHP_ITS ---
Hospitalist- H&P: HPI History of Present Illness Date Seen: 02/29/24 Chief complaint: Gauze stuck in throat Narrative: ADMISSION HISTORY AND PHYSICAL - HOSPITALIST Chief Complaint: Hypoxic HPI: This is an 78 year with a distant smoking history that had an acute event earlier this evening. She had had a tooth extraction that went fine earlier this morning. When she went to take a bite of ice cream she accidentally swallowed the gauze pack in her tooth socket. The gauze pack got stuck in her esophagus and she started vomiting. She could not bring it up. She tried waiting. She then came to the ED in mild distress. The ED staff was able to help her swallow this down. She then felt fine. However they noted occasional hypoxic dips into the 70s on her pulse ox. This was associated with a good waveform. She was not symptomatic. They ambulated her and found that she stay ed in the low to mid 70s with ambulation. No shortness of breath. No recent cough. No paroxysmal nocturnal dyspnea. She sleeps well with Unisom. She is limited in her activity secondary to chronic opioid use. But she states that she has felt her baseline for many weeks. Labs were then ordered. CTA was ordered. No obvious cause for her hypoxia. ER COURSE: Observation. Secondary to continued low sats without oxygen, our team was asked to evaluate and admit. CODE STATUS: FULL CODE EMERGENCY CONTACT PLAN: Marito Cartagena? Son?Rel to [facility]? [phone]?Home Phone? I've updated the PFSH, medications and allergies in the Expanse tabs. INVESTIGATIONS: LABS/MICRO/ECG/IMAGING CBC is unremarkable Blood gas is likely a venous sample. Normal pH 7.38. PCO2 46. PO2 37.6. Bicarb normal. CMP is quite unremarkable. Troponin is unremarkable. BNP is 3600 A1C 5.7 CRP normal. Procalcitonin pending. CTA IMPRESSION: 1. No pulmonary embolism. No acute findings in the chest. 2. New versus increased size of an 8 mm left lower lobe pulmonary nodule. Recommend follow-up chest CT in 6-12 months to evaluate for interval change. I reviewed a clinic appointment from October of 2023. At this appointment she complained of poor sleep and needing naps. She was taking Ambien. She also described being short of breath with exertion. There was no pulse ox taken at this visit. I did not see a pulse ox taken at her December of 2022 appointment. 98% on apparently room air in a January of 2023 ER visit. REVIEW OF SYSTEMS: 12-point ROS completed with patient and negative unless otherwise stated in HPI or below. PHYSICAL EXAM: CONSTITUTIONAL: Alert. Patient is in no distress. She speaks without becoming dyspneic. VITAL SIGNS: see record. HEENT: Normocephalic, atraumatic. PERRL, EOMI, conjunctivae pink, no scleral icterus. Ears and nose externally normal. Pharynx normal. NECK: No JVD. No carotid bruit, no thyromegaly, no adenopathy. CHEST: Clear to auscultation bilaterally HEART: S1 and S2 normal. No harsh murmurs. Edema none MUSCULOSKELETAL: No gross joint deformity or swelling. NEURO: Cranial nerves intact. Grossly intact. No asymmetric findings. SKIN: No rashes, petechiae, concerning changes PSYCHIATRIC: Euthymic. ADMIT TO MEDSURG: FLOOR CARE DVT: Lovenox GI: PO intake Time spent: Today I spent 75 minutes seeing the patient, discussing the patient with ER staff, reviewing Expanse and EPIC notes/diagnostics, discussing the care plan with our care time that includes social work, PT/OT, pharmacy, RT, chcf and documenting my impressions and plan in the medical record. [facility] Medical History (Updated 02/29/24 @ 23:26 by Mariana Lee MD) Osteoporosis ?M81.0 - Age-related osteoporosis without current pathological fracture (ICD- 10) H/O coronary angiogram ?Z98.890 - Other specified postprocedural states (ICD-10) Macular hole ?H35.349 - Macular cyst, hole, or pseudohole, unspecified eye (ICD-10) COVID-19 vaccine administered ?Z23 - Encounter for immunization (ICD-10) Elevated blood sugar ?R73.9 - Hyperglycemia, unspecified (ICD-10) Obesity (BMI 30.0-34.9) ?E66.9 - Obesity, unspecified (ICD-10) Constipation ?K59.00 - Constipation, unspecified (ICD-10) Cervical spondylosis with myelopathy and radiculopathy ?M47.12 - Other spondylosis with myelopathy, cervical region (ICD-10) ?M47.22 - Other spondylosis with radiculopathy, cervical region (ICD-10) Glaucoma ?H40.9 - Unspecified glaucoma (ICD-10) Insomnia ?G47.00 - Insomnia, unspecified (ICD-10) Malignant neoplasm of left breast ?C50.912 - Malignant neoplasm of unspecified site of left female breast (ICD- 10) Umbilical hernia without mention of obstruction or gangrene ?K42.9 - Umbilical hernia without obstruction or gangrene (ICD-10) Issue of repeat prescription ?Z76.0 - Encounter for issue of repeat prescription (ICD-10) Abnormal mammogram ?R92.8 - Other abnormal and inconclusive findings on diagnostic imaging of breast (ICD-10) DVT (deep venous thrombosis) ?I82.409 - Acute embolism and thrombosis of unspecified deep veins of unspecified lower extremity (ICD-10) Cholelithiasis ?K80.20 - Calculus of gallbladder without cholecystitis without obstruction (ICD-10) Rotator cuff syndrome of both shoulders ?M75.101 - Unspecified rotator cuff tear or rupture of right shoulder, not specified as traumatic (ICD-10) ?M75.102 - Unspecified rotator cuff tear or rupture of left shoulder, not specified as traumatic (ICD-10) Chronic lymphocytic thyroiditis ?E06.3 - Autoimmune thyroiditis (ICD-10) Diverticulitis ?K57.92 - Diverticulitis of intestine, part unspecified, without perforation or abscess without bleeding (ICD-10) Hyperlipidemia ?E78.5 - Hyperlipidemia, unspecified (ICD-10) Hypothyroidism ?E03.9 - Hypothyroidism, unspecified (ICD-10) Chronic pain ?G89.29 - Other chronic pain (ICD-10) Arachnoiditis ?G03.9 - Meningitis, unspecified (ICD-10) Surgical History S/P rotator cuff repair ?Z98.890 - Other specified postprocedural states (ICD-10) H/O arthroscopy of shoulder ?Z98.890 - Other specified postprocedural states (ICD-10) H/O hernia repair ?Z98.890 - Other specified postprocedural states (ICD-10) ?Z87.19 - Personal history of other diseases of the digestive system (ICD-10) Hx laparoscopic cholecystectomy ?Z90.49 - Acquired absence of other specified parts of digestive tract (ICD- 10) S/P breast lumpectomy ?Z98.890 - Other specified postprocedural states (ICD-10) H/O laminectomy ?Z98.890 - Other specified postprocedural states (ICD-10) Social History Problems where you live details: Lives alone Highest level of school completed/degree received: Associate degree: academic program Smoking Status: Former smoker What tobacco products do you use: cigarettes Smoking packs per day: 1 Smoking cigarettes per day: 20.0 Years smoked: 25 Smoking pack-years: 25.00 Smoking quit date/years: >15 years ago Do you use any of these nicotine containing products: None Nicotine containing products detail: quit 25 years ago Second hand tobacco smoke exposure: No How often do you have a drink containing alcohol: monthly or less Alcohol type: wine Alcohol type details: 1 glass wine every 2-3 months. AUDIT-C Alcohol total score: 1 Non-prescribed substance use: denies use Caffeine: Yes service: No Meds Home Medications and Allergies Home Medications Medication Instructions Recorded Confirmed Type biotin 2,500 mcg capsule 2,500 mcg PO DAILY 05/07/22 12/29/22 History docusate sodium 100 mg capsule 100 mg PO HS 05/07/22 05/07/22 History (Colace) doxylamine succinate 25 mg tablet 12.5 mg PO HS PRN 05/07/22 05/07/22 History (Unisom (doxylamine)) gabapentin 300 mg capsule 300 mg PO HS 05/07/22 12/29/22 History latanoprost 0.005 % eye drops 1 drp ophthalmic (eye) DAILY 05/07/22 05/07/22 History levothyroxine 137 mcg tablet 137 mcg PO DAILY 05/07/22 12/29/22 History lidocaine 5 % topical patch 1 patch topical Q24H PRN 05/07/22 05/07/22 History oxycodone 40 mg tablet,crush 40 mg PO DAILY 05/07/22 12/29/22 History resistant,extended release 12 hr (OxyContin) oxycodone-acetaminophen 5 mg-325 2 tab PO Q4H PRN 05/07/22 05/07/22 History mg tablet simvastatin 40 mg tablet 40 mg PO HS 05/07/22 12/29/22 History timolol maleate 0.5 % eye drops 1 drp ophthalmic (eye) HS 05/07/22 05/07/22 History Allergies Allergy/AdvReac Type Severity Reaction Status Date / Time azithromycin Allergy Mild Nausea Verified 02/29/24 19:39 Sulfa (Sulfonamide Allergy Mild Nausea Verified 02/29/24 19:39 Antibiotics) Exam Const: Vital Signs, click to edit/add: Vital Signs - 24 hr 02/29/24 18:10 02/29/24 21:51 02/29/24 22:00 Temperature 98.4 F 98.0 F 97.4 F L Pulse Rate [Right Pulse Oximeter] 92 80 90 Respiratory Rate 18 16 16 Blood Pressure [Ri ght Upper Arm] 118/75 124/72 154/85 H Pulse Oximetry 95 74 L 98 Oxygen Delivery Me thod Room Air Room Air Room Air Hospitalist - H&P: Result Labs Labs: Short CBC 02/29/24 Range/Units 19:02 WBC 8.28 (4.50-11.00) K/uL Hgb 12.8 (12.0-16.0) gm/dL Hct 41.1 (33.0-51.0) % Plt Count 199 (140-440) K/uL BMP 02/29/24 19:02 Sodium 139 Potassium 3.7 Chloride 108 Carbon Dioxide 29 BUN 16 Creatinine 0.6 Glucose 136 H Calcium 9.2 Cardiac Enzymes 02/29/24 Range/Units 19:02 Troponin I < 0.01 L (0.01-0.04) ng/mL Assessment and Plan Assessment and plan (1) Acute hypoxemic respiratory failure: Problem comment: asymptomatic generally but profound with good wave form -consider multifactorial/long standing: --aspiration from esophagus FB incident? COPD, chronic opioid use, cardiac ASD or PFO, muscle weakness etiology, COVID long haul, pulmonary fibrosis? -RT to evaluate, nebs, VBG in am/ABG if team orders, oxygen to titrate to 88- 92%, overnight oximetry by RT at 03/01, bedside spirometry if RT will attempt. -echo ordered -soft tissue XR of neck ordered -consider outpatient sleep study, full PFTs, pulmonary consult. Status: Acute (2) Foreign body in esophagus: Problem comment: -swallowed with help from ED staff interventions. -no imaging done of the neck -CTA reviewed -possible aspiration during FB incident? -repeat CXR in the am Status: Acute (3) Chronic, continuous use of opioids: Problem comment: On oxycontin 40 mg Q 12 hours. Alternates Q other month with percocet #200 . Has been compliant. Has seen [facility] and she decided against implantation of a narcotic epidural pump. She has been compliant with Q2 month follow up Status: Acute (4) Chronic pain: Problem comment: secondary to arachnoiditis; inflammation of the spinal nerves, hyperemia, the disappearance of the subarachnoid space/replaced by scar tissue. Status: Acute (5) History of COVID-19: Problem comment: April 2022. 4 day hospital stay at . Status: Acute (6) Lung nodule, multiple: Problem comment: CT chest 05/07/22. Evidence of remote granulomatous infection. A few noncalcified nodules are identified largest of which measures 6 millimeters. A follow-up CT of the chest in 6 months is advised - NOT DONE. CTA 02/29/24 - New versus increased size of an 8 mm left lower lobe pulmonary nodule. Recommend follow-up chest CT in 6-12 months to evaluate for interval change. Status: Acute (7) History of smoking: Problem comment: quit in 1999, after 50 years. Status: Acute
[2024-02-29 22:42] VITALS: RESP 22; O2SAT 96
--- NOTE | 2024-02-29 22:50 | XR_ITS ---
Patient: BOUBACAR HOLM Facility:?[facility] Patient ID:?[id number] Site Patient ID:?[id number]. Site :?[id number] Study:?XRay-ST Neck 2 VIEW-02/29/2024 11:37:58 PM Ordering Physician:GIUSEPPE Final Report: INDICATION: Rule out foreign body in neck causing hypoxia. TECHNIQUE: Soft tissue neck 2 view. COMPARISON: None.. FINDINGS: The airway is patent and normal. Epiglottis is normal. The retropharyngeal soft tissues are normal. No obvious masses. The visualized cervical spine demonstrates age-appropriate degenerative changes. Partially imaged emphysema. Carotid artery atherosclerotic disease bilaterally. IMPRESSION: Unremarkable soft tissue views of the neck. No radiopaque foreign body identified. Dictated by Marito Ayala MD @ 03/01/2024 12:08:54 AM Signed by:?Marito Ayala MD @03/01/2024 12:08:54 AM (Electronic Signature
[2024-02-29 22:52] LABS: Lactate* 1.2 mmol/L (0.5-1.9)
[2024-02-29 23:00] VITALS: PULSE 80; RESP 22; O2SAT 96
[2024-02-29 23:01] LABS: Albumin* 3.8 g/dL (3.3-5.0)
[2024-02-29 23:04] LABS: Alanine Aminotransferase* 13 U/L (4-35); Alkaline Phosphatase* 57 U/L (40-150); Aspartate Amino Transferase* 26 U/L (12-35); Bilirubin Direct* 0.2 mg/dL (0.0-0.5); Bilirubin Total* 0.5 mg/dL (0.1-1.5)
[2024-02-29 23:07] LABS: Hemoglobin A1C* 5.7 % (0-5.6)
[2024-02-29 23:15] LABS: C Reactive Protein* < 0.5 mg/dL (0.5-1.0)
[2024-02-29 23:24] LABS: Procalcitonin* 0.04 ng/mL (<0.50)
[2024-03-01] VITALS (11 sets, daily range): BP systolic 93–131; BP diastolic 55–87; PULSE 57–91; RESP 16–22; TEMP 36.3–36.9; O2SAT 87–98; BMI 23.8
[2024-03-01] MEDS: IPRAT-ALBUT 0.5-2.5 MG/3 ML NEB 1 NEB IH ×2 (00:06→17:53)
[2024-03-01] MEDS: ACETAMINOPHEN 325 MG TABLET PO ×2 (00:07→10:37)
--- NOTE | 2024-03-01 06:26 | PC.NURSE ---
Patient admitted to the unit at 2245 with hypoxia. C/o chronic generalized pain and headache. Tylenol administered for relief. SBA w/cane. Afebrile. O2 sats variable overnight w/2Lt NC ranging from 60's-95 (with good waveform), maintaining 87-91 most of noc. O2 pattern consistent with CARLOS ENRIQUE. In addition patient is a mouth-breather while sleeping and refused OxyMask placement.
[2024-03-01] MEDS: LEVOTHYROXINE 112 MCG TABLET PO (08:09)
[2024-03-01] MEDS: LEVOTHYROXINE 25 MCG TABLET PO (08:10)
--- NOTE | 2024-03-01 08:11 | XR_ITS ---
Patient: BOUBACAR HOLM Facility:?[facility] Patient ID:?[id number] Site Patient ID:?[id number] Site :?[id number] Study:?XRay-Chest -03/01/2024 8:47:25 AM Ordering Physician:MIGUE Final Report: INDICATION: sob TECHNIQUE: Chest 2 views. COMPARISON: CT angio chest February 29, 2024. Chest x-ray May 07, 2022 IMPRESSION: Cardiovascular and mediastinum: Heart size and vasculature are normal in caliber and appearance. Lungs and pleural spaces: Pulmonary emphysema. Bibasilar opacities likely representing atelectasis/scarring as seen on recent CT. When compared to x-ray from May 07, 2022 there is new patchy in the right lateral lung base for which a new or developing consolidation cannot be excluded given differences in technique from recent CT chest. No effusion or pneumothorax. Bones and soft tissues: No significant findings. Dictated by Jeb Flynn MD @ 03/01/2024 8:54:11 AM Signed by:?Jeb Flynn MD @03/01/2024 8:54:11 AM (Electronic Signature)
[2024-03-01] MEDS: BUDESONIDE 0.5 MG/2ML NEB NEB ×2 (09:21→21:03)
--- NOTE | 2024-03-01 10:59 | PC.NURSE ---
shift note: intial check of HR and sats prior to ambulation: s=74, HR 98. Pt denied sob,chest pain or pressure. pt nail beds dusky and hands cool to touch. pt placed on 2L PNC O2 and ambulated 100ft. Pt gait steady. Pt denied chest pain, chest pressure or sob. sat monitor during ambulation s=84,VU=741. Pt increased to 3L PNC O2 after ambulation and sat on edge of bed doing pursed lip breathing. sats remained 88%. pt placed supine in bed with sats increasing to 96% on 2L pnc. Dr. Jenkins notified of pt's ambulation trial.
--- NOTE | 2024-03-01 11:23 | PC.NURSE ---
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
--- NOTE | 2024-03-01 11:25 | P.IMPN_ITS ---
Progress Note: A&P Assessment and plan (1) Acute hypoxemic respiratory failure: Problem details: - asymptomatic generally but profound, possibly long standing - ddx: aspiration from esophagus FB incident, COPD, iatrogenic from opiates, cardiac etiology, long COVID - RT referral, supplemental oxygen as tolerated - TTE ordered for 03/01 - recommend outpatient sleep study and Pulmonology f/u; pt declining at this time Status: Acute (2) Foreign body in esophagus: Problem details: - swallowed with help from ED staff interventions - neck imaging reassuring, repeat CXR 03/01 reassuring - CTA reviewed Status: Acute (3) Chronic, continuous use of opioids: Problem details: - oxycontin 40 mg Q 12 hours. Alternates Q other month with percocet #200, + compliant - has seen [facility] and she decided against implantation of a narcotic epidural pump Status: Acute (4) Chronic pain: Problem details: - secondary to arachnoiditis; inflammation of the spinal nerves, hyperemia, the disappearance of the subarachnoid space/replaced by scar tissue. Status: Acute (5) History of COVID-19: Problem details: - April 2022. 4 day hospital stay at . Status: Acute (6) Lung nodule, multiple: Problem details: CT chest 05/07/22. Evidence of remote granulomatous infection. A few noncalcified nodules are identified largest of which measures 6 millimeters. A follow-up CT of the chest in 6 months is advised - NOT DONE. CTA 02/29/24 - New versus increased size of an 8 mm left lower lobe pulmonary nodule. Recommend follow-up chest CT in 6-12 months to evaluate for interval change. 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 She had nocturnal hypoxia with concerns of CARLOS ENRIQUE; she does not plan to follow this up and requests that we discontinue overnight continuous pulse oximetry, as she didn't sleep at all last night. This morning, she is requesting discharge home, but continues to have desaturations into the 70s% with activity with slow return to baseline. She agrees to stay in the hospital today for her TTE and Occupational Therapy. We had a long discussion (with daughter Livia at bedside) regarding patient's goals of care. She is not willing to have a workup for CARLOS ENRIQUE, not willing to wear home O2 (u nderstanding that both of these decisions will likely shorten her life). Her chronic pain is limiting and she does have relief from home medications, we will continue these. 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 Exam Narrative: Exam Narrative: GEN: Alert HEENT: EOMIs bilaterally, no scleral icterus CV: RRR, No concerning murmurs R: LCTA bilaterally without concerning wheezing Ext: No concerning edema Skin: No concerning skin lesions or rashes on exposed skin Neuro: No focal deficits, no resting tremor Psych: Appropriate Const: Vital Signs, click to edit/add: Vital Signs - 24 hr 02/29/24 18:10 02/29/24 21:51 02/29/24 22:00 Temperature 98.4 F 98.0 F Pulse Rate Pulse Rate [Pulse Oximeter] Pulse Rate [Right Pulse Oximeter] 92 80 90 Respiratory Rate 18 16 Blood Pressure [Ri ght Arm] Blood Pressure [Ri ght Upper Arm] 118/75 124/72 Pulse Oximetry 95 74 L Oxygen Delivery Me thod Room Air Room Air Oxygen Flow Rate 02/29/24 22:42 02/29/24 23:00 02/29/24 23:00 Temperature Pulse Rate 80 Pulse Rate [Pulse Oximeter] Pulse Rate [Right Pulse Oximeter] Respiratory Rate 22 22 Blood Pressure [Ri ght Arm] Blood Pressure [Ri ght Upper Arm] Pulse Oximetry 96 96 Oxygen Delivery Me thod Nasal Cannula Nasal Cannula Oxygen Flow Rate 1.0 1.0 03/01/24 00:19 03/01/24 00:19 03/01/24 02:27 Temperature 98.0 F 98.3 F Pulse Rate Pulse Rate [Pulse Oximeter] 78 91 Pulse Rate [Right Pulse Oximeter] Respiratory Rate 22 22 20 Blood Pressure [Ri ght Arm] 107/68 99/55 L Blood Pressure [Ri ght Upper Arm] Pulse Oximetry 96 96 90 Oxygen Delivery Me thod Nasal Cannula Nasal Cannula Nasal Cannula Oxygen Flow Rate 1.0 1.0 2.0 03/01/24 07:00 03/01/24 07:30 Temperature 97.9 F Pulse Rate Pulse Rate [Pulse Oximeter] 57 L Pulse Rate [Right Pulse Oximeter] Respiratory Rate 18 Blood Pressure [Ri ght Arm] 124/61 Blood Pressure [Ri t Upper Arm] Pulse Oximetry 98 98 Oxygen Delivery Me thod Nasal Cannula Room Air Oxygen Flow Rate 2 Labs Labs: Laboratory Results - last 24 hr 02/29/24 02/29/24 02/29/24 18:49 19:02 21:40 WBC 8.28 RBC 4.27 Hgb 12.8 Hct 41.1 MCV 96 MCH 30 MCHC 31 L RDW Coeff of Pepe 13.8 Plt Count 199 Neut % (Auto) 69.6 Lymph % (Auto) 19.4 L Pettis % (Auto) 7.6 Eos % (Auto) 3.1 Baso % (Auto) 0.2 Neut # (Auto) 5.75 Lymph # (Auto) 1.60 Pettis # (Auto) 0.60 Eos # (Auto) 0.26 Baso # (Auto) 0.02 Abs Immat Gran (auto) 0.01 Imm/Tot Granulo (auto) 0.1 ABG pH 7.38 ABG pCO2 46 H ABG pO2 37.6 L* ABG HCO3 28 ABG Total CO2 25 ABG O2 Saturation 70 L ABG Base Excess 1.8 Carboxyhemoglobin 1.5 Sodium 139 Potassium 3.7 Chloride 108 Carbon Dioxide 29 Anion Gap 2 L BUN 16 Creatinine 0.6 Estimated Creat Clear 38.75 Estimated GFR 91 Glucose 136 H Hemoglobin A1c 5.7 H Lactate 1.2 Calcium 9.2 Total Bilirubin 0.5 Direct Bilirubin 0.2 AST 26 ALT 13 Alkaline Phosphatase 57 Troponin I < 0.01 L C-Reactive Protein < 0.5 L NT-Pro-B Natriuret Pep 3620 Total Protein 7.0 Albumin 3.8 Procalcitonin 0.04 SARS-CoV-2 (PCR) Negative SARS-CoV-2 Influenza Type A (PCR) Negative PCR FLU A Influenza Type B (PCR) Negative PCR FLU B RSV (PCR) Negative PCR RSV Lab Acknowledgement POC Creatinine 0.6 POC Troponin I 0.01 02/29/24 02/29/24 21:51 22:41 WBC RBC Hgb Hct MCV MCH MCHC RDW Coeff of Pepe Plt Count Neut % (Auto) Lymph % (Auto) Pettis % (Auto) Eos % (Auto) Baso % (Auto) Neut # (Auto) Lymph # (Auto) Pettis # (Auto) Eos # (Auto) Baso # (Auto) Abs Immat Gran (auto) Imm/Tot Granulo (auto) ABG pH ABG pCO2 ABG pO2 ABG HCO3 ABG Total CO2 ABG O2 Saturation ABG Base Excess Carboxyhemoglobin Sodium Potassium Chloride Carbon Dioxide Anion Gap BUN Creatinine Estimated Creat Clear Estimated GFR Glucose Hemoglobin A1c Lactate Calcium Total Bilirubin Direct Bilirubin AST ALT Alkaline Phosphatase Troponin I C-Reactive Protein NT-Pro-B Natriuret Pep Total Protein Albumin Procalcitonin SARS-CoV-2 (PCR) Influenza Type A (PCR) Influenza Type B (PCR) RSV (PCR) Lab Acknowledgement Test Added POC Creatinine POC Troponin I 0.01
[2024-03-01] MEDS: SODIUM CHLORIDE 0.9 % (FLUSH) 10 ML SYRINGE 5 ML IVF ×2 (11:26→21:03)
[2024-03-01] MEDS: predniSONE 20 MG TABLET 40 MG PO (13:20)
[2024-03-01] MEDS: timoloL maleate 0.5 % 1 DROP EYE-BOTH (14:11)
[2024-03-01] MEDS: OxyCODONE/APAP 5-325 TABLET 2 TAB PO ×3 (14:11→21:36)
[2024-03-01] MEDS: SENNOSIDES/DOCUSATE TABLET 1 TAB PO (14:13)
--- NOTE | 2024-03-01 14:48 | REH.OT ---
Due to therapy scheduling conflicts, the patient will be seen by OT on 03/02/24.
--- NOTE | 2024-03-01 18:50 | PC.NURSE ---
End of Shift Note: Took over patient's care at 1500. When I went in to do my assessment we did trial removing her off of the oxygen to see how she would do on room air. 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 Instructed her on the importance of doing that at least once an hour if not every commercial break. She did quickly drop her sats just sitting in bed she is 71% on room air. also complete orthostatic b/p and did not have any symptoms and see charting for her results. Received percocet x1 for her chronic pain. Also discussed about having a pulse oximetry placed on her finger tonight while she sleeps to see how her oxygen level do while she is sleeping. She is in agreement with doing this but she is also hoping to get some sleep tonight as she didn't get any last night. will continue to monitor until next shift arrives.
[2024-03-01] MEDS: DOCUSATE SODIUM 100 MG CAPSULE PO (21:03)
[2024-03-01] MEDS: SIMVASTATIN 40 MG TABLET PO (21:03)
[2024-03-01] MEDS: GABAPENTIN 300 MG CAPSULE PO (21:03)
[2024-03-01] MEDS: ENOXAPARIN 40 MG/0.4 ML INJ SUBCUT (21:03)
[2024-03-01] MEDS: LATANOPROST 0.005% OPHTH 1 DROP EYE-BOTH (21:06)
[2024-03-02 03:00] VITALS: PULSE 68; RESP 18; O2SAT 87
[2024-03-02 05:10] VITALS: RESP 16
--- NOTE | 2024-03-02 05:59 | PC.NURSE ---
End of shift report [id number]: Pleasant and cooperative with cares. Pain to back reported, well managed with current regimen. Nocturnal oximetry study started at 2143, O2 stopped prior to start of study. Patient had event of desaturation at 2320, O2 applied at 1L until 0045. Patient did have events of desaturation throughout the night but rebounded above 80% when advertising copywriter arrived to room to start oxygen. SBA with ambulation with cane.
[2024-03-02 06:28] LABS: HCO3 VBG 27 mmol/L (21-28); PCO2 VBG 44 mmHG (40-50); PO2 VBG 40.7 mmHG (25-47); pH VBG 7.391 (7.32-7.43)
[2024-03-02 06:35] LABS: Basophils Absolute Auto 0.01 K/uL (0.00-0.30); Basophils Percent Auto 0.2 % (0.0-3.0); Eosinophils Absolute Auto 0.02 K/uL (0.00-0.50); Eosinophils Percent Auto 0.3 % (0.0-7.0); Hematocrit 39.8 % (33.0-51.0); Hemoglobin* 12.7 gm/dL (12.0-16.0); Immature Granulocytes Abs Auto 0.01 K/uL (0.00-0.30); Immature Granulocytes Pct Auto 0.2 %; Lymphocytes Absolute Auto 1.35 K/uL (0.90-2.90); Lymphocytes Percent Auto 23.2 % (20-44); Mean Corpuscular HGB Conc 32 gm/dL (32-36); Mean Corpuscular Hemoglobin 30 pg (26-34); Mean Corpuscular Volume 95 fL (80-100); Monocytes Percent Auto 9.5 % (0.0-11.0); Neutrophils Absolute Auto 3.87 K/uL (1.7-7.0); Neutrophils Percent Auto 66.6 % (42.0-72.0); Platelet Count* 188 K/uL (140-440); RDW Coefficient of Variation % 13.6 % (11.5-15.5); Red Blood Count 4.18 m/uL (4.00-5.20); Slide Review Reflex No; White Blood Count* 5.81 K/uL (4.50-11.00)
[2024-03-02 07:00] VITALS: O2SAT 94
[2024-03-02 07:02] LABS: Chloride* 104 mmol/L (96-114)
[2024-03-02 07:03] LABS: Albumin* 4.1 g/dL (3.3-5.0); Potassium* 4.6 mmol/L (3.6-5.1); Sodium* 137 mmol/L (135-149)
[2024-03-02 07:05] LABS: Creatinine* 0.7 mg/dL (0.5-1.5); Est. Creatinine Clearance* 38.75; Estimated Glomerular Filt Rate 87 ml/min
[2024-03-02 07:06] LABS: Alanine Aminotransferase* 21 U/L (4-35); Alkaline Phosphatase* 70 U/L (40-150); Anion Gap 8 mEq/L (7-15); Aspartate Amino Transferase* 35 U/L (12-35); Bilirubin Total* 0.4 mg/dL (0.1-1.5); Blood Urea Nitrogen* 22 mg/dL (7-30); Carbon Dioxide* 25 mmol/L (20-32); Glucose* 118 mg/dL (60-115); Total Protein* 7.5 g/dL (6.0-8.3)
[2024-03-02 07:07] LABS: Calcium* 9.5 mg/dL (8.4-10.6)
[2024-03-02] MEDS: LEVOTHYROXINE 112 MCG TABLET PO (07:39)
[2024-03-02] MEDS: LEVOTHYROXINE 25 MCG TABLET PO (07:39)
[2024-03-02 07:45] VITALS: BP 110/66; PULSE 79; RESP 18; TEMP 36.7; O2SAT 92
[2024-03-02] MEDS: timoloL maleate 0.5 % 1 DROP EYE-BOTH (07:48)
--- NOTE | 2024-03-02 08:03 | XR_ITS ---
Patient: BOUBACAR HOLM Facility:?[facility] Patient ID:?[id number] Site Patient ID:?[id number]. Site :?[id number] Study:?XRay-Chest 2V-03/02/2024 8:32:21 AM Ordering Physician:ANALIA Final Report: Indication: Follow-up, shortness of breath. Technique: Two view(s) of the chest. Comparison: 03/01/2024 and 02/29/2024. Findings: Unchanged cardiomediastinal silhouette with atherosclerotic aortic calcifications. Lungs are hypoinflated with mild bronchovascular crowding. Streaky bibasilar airspace opacities are slightly increased favoring subsegmental atelectasis. Right lateral lung base airspace opacities not significantly changed compared to yesterday`s radiograph. No new consolidation. No pleural effusion or pneumothorax. Unchanged bones and soft tissues. Impression: Hypoinflated lungs with increased streaky basilar airspace opacities favoring subsegmental atelectasis. Dictated by Ce Ozuna MD @ 03/02/2024 8:40:11 AM Signed by:?Ce Ozuna MD @03/02/2024 8:40:11 AM (Electronic Signature)
[2024-03-02] MEDS: BUDESONIDE 0.5 MG/2ML NEB NEB (09:38)
[2024-03-02 11:00] VITALS: BP 91/70; PULSE 74; RESP 18; TEMP 36.5; O2SAT 94
[2024-03-02] MEDS: IPRAT-ALBUT 0.5-2.5 MG/3 ML NEB 1 NEB IH (11:20)
--- NOTE | 2024-03-02 12:18 | P.DS_ITS ---
DS: Providers Provider Date Seen: 03/02/24 Date of admission: 02/29/24 22:42 Primary care physician: Not a Local Provider Admitting Clinician: Mariana Lee MD Consults: RT, OT Attending Physician on discharge: Niyah Jenkins MD Date of Discharge: 03/02/24 DS: Diagnosis Discharge Diagnosis (1) Acute hypoxemic respiratory failure: Status: Acute Problem details: - ddx: aspiration from esophagus FB incident, CARLOS ENRIUQE, COPD, iatrogenic from opiates, cardiac etiology, long COVID - RT referral, supplemental oxygen as tolerated - oxygen needs decreased during stay, + nocturnal hypoxia during overnight oximetry study - recommend outpatient sleep study and Pulmonology f/u; pt declining at this time - appears to have enlargement of RV on TTE, formal Cardiology read pending (2) Foreign body in esophagus: Status: Acute Problem details: - swallowed with help from ED staff interventions - imaging reassuring, tolerated po intake well during stay (3) Chronic, continuous use of opioids: Status: Acute Problem details: - oxycontin 40 mg Q 12 hours. Alternates Q other month with percocet #200, + compliant with appropriate [employer] findings - has seen [facility] and she decided against implantation of a narcotic epidural pump (4) Chronic pain: Status: Acute Problem details: - secondary to arachnoiditis; inflammation of the spinal nerves, hyperemia, the disappearance of the subarachnoid space/replaced by scar tissue. (5) History of COVID-19: Status: Acute Problem details: - April 2022. 4 day hospital stay at (6) Lung nodule, multiple: Status: Acute Problem details: - per history: CT chest 05/07/22, evidence of remote granulomatous infection + noncalcified nodule, largest of which measures 6 millimeters. f/u CT not done - CTA 02/29/24: new vs increased size of an 8 mm left lower lobe pulmonary nodule. Recommend follow-up chest CT in 6-12 months to evaluate for interval change. (7) History of smoking: Status: Acute Problem details: - quit in 1999, after 50 years (8) Counseling regarding goals of care: Status: Acute Problem details: - patient not interested in supplemental oxygen, sleep study, or aggressive workup for current issues given chronic pain - [employer]term[employer] continuous churn goal is to live in her home as long as possible, have appropriate pain management - agreeable to OT consult - daughter Livia aware (discussion held at bedside 03/01) DS: Summary Hospital Course Hospital Course: Melisa was admitted to the hospital on 02/28 for acute hypoxic respiratory failure after accidentally swallowing gauze following a tooth extraction. She was found to have oxygen saturations in the 70% range in the emergency room, admitted for monitoring. During stay, she remained intermittently hypoxic, particularly at night. Overnight oximetry exhibited that approximately 60% of her evening was spent between 80-88% O2 saturation. Patient understands the recommendation for outpatient sleep study; deferring at this time. She also deferred a home oxygen evaluation, as she would not be willing to wear oxygen as an outpatient. Followed by OT during stay and is agreeable to a home safety evaluation to help make sure she's maximizing home safety for ADLs, etc. Chronic pain limits her mobility, and her hope is to stay in her own home as long as possible. TTE obtained on day of discharge; notable for RV enlargement and TR by tech impression; formal Cardiology read is pending. Melisa was stable on RA during the day on 03/02/24, requesting d/c home with PCP f/u. Michael Bhakta updated by phone with plan of care. Status at Discharge Overall status at discharge: patient is progressing back to baseline Time Spent with Patient Time attestation: Total time spent providing and/or coordinating discharge services: Time spent: Greater than 30 minutes Specific discharge activities: medication reconciliation, patient and family updates, education Exam Narrative: Exam Narrative: GEN: Alert and sitting comfortably in bed, answering questions appropriately HEENT: EOMIs bilaterally, no scleral icterus CV: RRR, No concerning murmurs R: LCTA bilaterally without concerning wheezing, fine wheezing L base (c/w atelectasis on CXR), air movement adequate Ext: wwp, trace BLE edema Skin: No concerning skin lesions or rashes on exposed skin Neuro: No focal deficits on limited exam Psych: Appropriate Const: Vital Signs, click to edit/add: Vital Signs - 24 hr 03/01/24 15:00 03/01/24 15:00 03/01/24 15:00 Temperature 97.3 F L Pulse Rate [Pulse Oximeter] 70 70 Pulse Rate [orthos tatic lying Right Radial] Pulse Rate [orthos tatic sitting Righ t Radial] Pulse Rate [orthos tatic standing Rig ht Radial] Respiratory Rate 20 20 Blood Pressure [Ri ght Arm] 93/60 Blood Pressure [or thostatic lying Ri ght Arm] Blood Pressure [or thostatic sitting Right Arm] Blood Pressure [or thostatic standing Right Arm] Pulse Oximetry 93 93 Oxygen Delivery Me thod Room Air Room Air Oxygen Flow Rate 03/01/24 16:48 03/01/24 19:00 03/01/24 23:00 Temperature 98.2 F Pulse Rate [Pulse Oximeter] 74 74 Pulse Rate [orthos tatic lying Right Radial] 72 Pulse Rate [orthos tatic sitting Righ t Radial] 76 Pulse Rate [orthos tatic standing Rig ht Radial] 76 Respiratory Rate 19 19 Blood Pressure [Ri ght Arm] 109/64 Blood Pressure [or thostatic lying Ri ght Arm] 108/66 Blood Pressure [or thostatic sitting Right Arm] 108/58 L Blood Pressure [or thostatic standing Right Arm] 111/63 Pulse Oximetry 90 Oxygen Delivery Me thod Nasal Cannula Oxygen Flow Rate 2 03/01/24 23:00 03/01/24 23:30 03/02/24 03:00 Temperature Pulse Rate [Pulse Oximeter] 68 Pulse Rate [orthos tatic lying Right Radial] Pulse Rate [orthos tatic sitting Righ t Radial] Pulse Rate [orthos tatic standing Rig ht Radial] Respiratory Rate 16 16 18 Blood Pressure [Ri ght Arm] Blood Pressure [or thostatic lying Ri ght Arm] Blood Pressure [or thostatic sitting Right Arm] Blood Pressure [or thostatic standing Right Arm] Pulse Oximetry 87 L 87 L Oxygen Delivery Me thod Nasal Cannula Room Air Oxygen Flow Rate 1 03/02/24 05:10 03/02/24 07:45 Temperature 98.1 F Pulse Rate [Pulse Oximeter] 79 Pulse Rate [orthos tatic lying Right Radial] Pulse Rate [orthos tatic sitting Righ t Radial] Pulse Rate [orthos tatic standing Rig ht Radial] Respiratory Rate 16 18 Blood Pressure [Ri ght Arm] 110/66 Blood Pressure [or thostatic lying Ri ght Arm] Blood Pressure [or thostatic sitting Right Arm] Blood Pressure [or thostatic standing Right Arm] Pulse Oximetry 92 Oxygen Delivery Me thod Room Air Oxygen Flow Rate DS: Data Data Completed and Pending Labs on day of discharge: Labs from last 24 hours 03/02/24 05:54 WBC 5.81 RBC 4.18 Hgb 12.7 Hct 39.8 MCV 95 MCH 30 MCHC 32 RDW Coeff of Pepe 13.6 Plt Count 188 Neut % (Auto) 66.6 Lymph % (Auto) 23.2 [place] % (Auto) 9.5 Eos % (Auto) 0.3 Baso % (Auto) 0.2 Neut # (Auto) 3.87 Lymph # (Auto) 1.35 [place] # (Auto) 0.60 Eos # (Auto) 0.02 Baso # (Auto) 0.01 Abs Immat Gran (auto) 0.01 Imm/Tot Granulo (auto) 0.2 VBG pH 7.391 VBG pCO2 44 VBG pO2 40.7 VBG HCO3 27 Sodium 137 Potassium 4.6 Chloride 104 Carbon Dioxide 25 Anion Gap 8 BUN 22 Creatinine 0.7 Estimated Creat Clear 38.75 Estimated GFR 87 Glucose 118 H Calcium 9.5 Total Bilirubin 0.4 AST 35 ALT 21 Alkaline Phosphatase 70 Total Protein 7.5 Albumin 4.1 Discharge Plan Discharge Disposition: Home, Self-Care Date of Admission: 02/29/24 22:42 Attending Provider on Discharge: Niyah Jenkins Consulting Providers: Jamin Brar Primary Care Provider: Provider,Not a Local Condition: Improved Anticipated Discharge Date/Time: 03/02/24 12:07 Discharge Medications: New lidocaine 5 % Adhesive Patch,Medicated 1 patch transdermal Q24H PRNQty: 30 0RF Continued tizanidine [Zanaflex] 4 mg capsule 4 mg PO TID PRN (Reason: muscle spasticity) Qty: 20 0RF latanoprost 0.005 % drops 1 drp ophthalmic (eye) DAILY Patient Comments: Instill 1 drop into both eyes at bedtime levothyroxine 137 mcg tablet 137 mcg PO DAILY Patient Comments: TAKE 1 TABLET BY MOUTH BEFORE BREAKFAST simvastatin 40 mg tablet 40 mg PO HS Hold Instructions: held while on Paxlovid Patient Comments: TAKE 1 TABLET BY MOUTH ONCE DAILY IN THE EVENING oxycodone-acetaminophen 5-325 mg tablet 2 tab PO Q4H PRN gabapentin 300 mg capsule 300 mg PO TID Patient Comments: TAKE 1 CAPSULE BY MOUTH THREE TIMES DAILY timolol maleate 0.5 % drops 1 drp OPHTHALMIC (EYE) HS oxycodone [OxyContin] 40 mg tablet,oral only,ext.rel.12 hr 40 mg PO DAILY docusate sodium [Colace] 100 mg capsule 100 mg PO HS Unisom (doxylamine) 25 mg tablet 12.5 mg PO HS PRN biotin 2,500 mcg capsule 2,500 mcg PO DAILY Discharge Orders: Discharge Order (Routine); Ordered 03/02/24 Ordered By: Niyah Jenkins Patient Education: Lidocaine Patch (On the skin), Hypoxia (GEN) Additional Instructions: - Use your Incentive Spirometer 3-4 times/day (before meals) to help with breathing. - You most certainly have an element of sleep apnea; if you're ever interested in working this up further, you could have an outpatient sleep study test. - Occupational Therapy will do a followup to help make sure that we are appropriately utilizing modifications to keep you home safely. - Consider a meet and greet appointment with Dr. Isidra Cisneros at the [facility]. - A protein drink/day would be very helpful for you. If Ensure is too medicine-y, you could try [employer] Power - We'll be in touch with formal results of your heart ultrasound (echocardiogram). Dr. Brar will receive this as well - There aren't many in-person support groups for chronic pain at this time, but check out the below websites for Zoom meetings, connections, etc You have a lot to offer to other patients who may be struggling with the same symptoms and life changes! www.painconnection.org [email or web address] Activity Level: Activity as Tolerated Discharge Diet: Regular Follow Up Appointments: Provider,Not a Local [Primary Care Provider] - 03/08/24 1:30 pm ([facility] in [place] with PCP (Dr. Jamin Brar) for follow up. [phone]) Forms: [employer] Info Instructions
--- NOTE | 2024-03-02 12:26 | RESP.RT ---
Patient instructed on IS and pursed lip breathing. Patient able to demonstrate back both modalities.
[2024-03-02] MEDS: OxyCODONE/APAP 5-325 TABLET 2 TAB PO (13:24)
--- NOTE | 2024-03-02 15:24 | PC.NURSE ---
shift note: vss stable. pt up indept in room with cane. pt denies sob, chest pain or pressure. LS clr. IV dc'd intact. Reviewed dc instructions and copies sent with pt. Belongings sent with pt at dc. Home medications returned at dc.
--- NOTE | 2024-03-03 07:07 | REH.OT ---
Note from 03/02/24 at 1415: Order received, chart reviewed, attempted 2x in am with patient initially declining to participate, then with other discipline. In pm, patient had Echo, returned and she was discharging shortly. Patient would not get OOB. OT addressed reason for referral and patient stated I will just talk to you. OT addressed role of OT, home safety, community resources and recommendation for OP home safety eval upon discharge. Patient reports she does not want to work with therapies. After further discussion and education, patient agreed to home safety eval at d/c. She requested OT speak with her daughter and that family has questions. OT spoke with daughter who is requesting information about [facility] and home office representative care services, addressed that patient not currently homebound per her report. OT offered to ask farmworker fruit meet with them before discharge to provide additional community resources and the patient refused to talk with a social services manager in person or on the phone. Patient's daughter reports she would like to speak with social work but patient stated she did not want her daughter talking to social services manager on her behalf. They get in your business and I do not want them involved, period. Patient agreed OT could speak with SW and provide daughter with written resources only, which was done. Obtained OP order for Home safety eval and PT for patient's chronic pain issues, she reports she has participated in pool therapy in the past and that she will think about it. Patient would not schedule home safety eval and requested wait to call until 03/04/24. Late entry due to therapist error wrong chart initially.
--- NOTE | 2024-03-07 16:18 | REH.OT ---
OT: Received orders for outpatient home safety eval when patient discharged from hospital on 03/02/24. Patient requested call to schedule on 03/04/24. OT called and left message with patient to schedule eval on 03/04/24 and again today, 03/07/24. Awaiting call back from patient to schedule.
--- NOTE | 2024-04-20 11:02 | REH.OT ---
OT: OT has attempted to reach patient 5x to schedule home safety eval and patient has not returned calls. Patient's initial referral had been 03/02/24 with order discontinued. Patient can go through PCP to reorder if needed.
== END 2024-03-02 15:26 | disposition home or self-care (01) | DRG 189 ==
LOC: ED 22:17 → MEDSURG 22:42
PROVIDERS: Family Medicine; Admitting Provider Family Medicine; Emergency Provider Student in an Organized Health Care Education/Training Program; Visit Provider Family Medicine
DX: J96.01 Acute respiratory failure with hypoxia (principal); T18.198A Other foreign object in esophagus causing other injury, initial encounter; W44.8XXA Other foreign body entering into or through a natural orifice, initial encounter; F11.90 Opioid use, unspecified, uncomplicated; G89.29 Other chronic pain; R91.8 Other nonspecific abnormal finding of lung field; I08.3 Combined rheumatic disorders of mitral, aortic and tricuspid valves; M47.22 Other spondylosis with radiculopathy, cervical region; E06.3 Autoimmune thyroiditis; E03.9 Hypothyroidism, unspecified; E78.5 Hyperlipidemia, unspecified; E66.9 Obesity, unspecified; Z86.61 Personal history of infections of the central nervous system; Z85.3 Personal history of malignant neoplasm of breast; Z86.718 Personal history of other venous thrombosis and embolism; Z87.891 Personal history of nicotine dependence
CPT/HCPCS: 36415; 36600; 70360; 71046; 71275; 80048; 80053; 80076; 82565; 82803; 83036; 83605; 83880; 84145; 84484; 85025; 86140; 87631; 93005; 93306; 94640; 99284; 99285; G0378; A9270; J1610; J1650; J2405; J7512; J7626; Q9967

== ENCOUNTER 2024-06-19 15:42 | Emergency (ER) | payer MEDICARE, BC, SELFPAY ==
[2024-06-19 15:58] VITALS: BP 106/70; PULSE 68; RESP 16; TEMP 36.8; O2SAT 89; BMI 22.1
--- NOTE | 2024-06-19 16:08 | ED_ITS ---
HPI - Female Genitourinary General Time Seen by Provider: 16:08 Date Seen: 06/19/24 Chief complaint: Urogenital Problems, Female Stated complaint: bladder infection Time Seen by Provider: 06/19/24 16:03 Source: patient and RN notes reviewed Mode of arrival: ambulatory Limitations: no limitations History of Present Illness HPI Narrative: This 78-year-old female is ambulatory into the ED with concern of UTI. She was on Macrobid last fall for her 1st urinary tract infection, she states this feels like it again. She has had no fevers, no nausea or vomiting, no abdominal pain. She started noticing some pain with urination last night, is getting worse. No hematuria. She does not believe that she has any underlying kidney disease. She had kidney functions done here February of 2024 with a creatinine of 0.7 and estimated creatinine clearance of 38.75. She has intolerance is to is azithromycin and sulfa with nausea. MD elicited complaint: dysuria and UTI Related Data Home Medications ?Medication ?Instructions ?Recorded ?Confirmed biotin 2,500 mcg capsule 2,500 mcg PO DAILY 05/07/22 03/01/24 docusate sodium 100 mg capsule 100 mg PO HS 05/07/22 03/01/24 (Colace) doxylamine succinate 25 mg tablet 12.5 mg PO HS PRN 05/07/22 03/01/24 (Unisom (doxylamine)) gabapentin 300 mg capsule 300 mg PO TID 05/07/22 03/01/24 latanoprost 0.005 % eye drops 1 drp ophthalmic (eye) DAILY 05/07/22 03/01/24 levothyroxine 137 mcg tablet 137 mcg PO DAILY 05/07/22 03/01/24 oxycodone 40 mg tablet,crush 40 mg PO DAILY 05/07/22 03/01/24 resistant,extended release 12 hr (OxyContin) oxycodone-acetaminophen 5 mg-325 2 tab PO Q4H PRN 05/07/22 03/01/24 mg tablet simvastatin 40 mg tablet 40 mg PO HS 05/07/22 03/01/24 timolol maleate 0.5 % eye drops 1 drp ophthalmic (eye) HS 05/07/22 03/01/24 Previous Rx's ?Medication ?Instructions ?Recorded tizanidine 4 mg capsule (Zanaflex) 4 mg PO TID PRN muscle spasticity 12/29/22 #20 caps lidocaine 5 % topical patch 1 patch transdermal Q24H PRN #30 ea 03/02/24 cephalexin 250 mg capsule 250 mg PO TID #15 caps 06/19/24 Allergies Allergy/AdvReac Type Severity Reaction Status Date / Time azithromycin Allergy Mild Nausea Verified 06/19/24 16:04 Sulfa (Sulfonamide Allergy Mild Nausea Verified 06/19/24 16:04 Antibiotics) Review of Systems Narrative: As per HPI. [facility] Medical History Counseling regarding goals of care ?Z71.89 - Other specified counseling (ICD-10) History of smoking ?Z87.891 - Personal history of nicotine dependence (ICD-10) History of COVID-19 ?Z86.16 - Personal history of COVID-19 (ICD-10) Chronic, continuous use of opioids ?F11.90 - Opioid use, unspecified, uncomplicated (ICD-10) Lung nodule, multiple ?R91.8 - Other nonspecific abnormal finding of lung field (ICD-10) Osteoporosis ?M81.0 - Age-related osteoporosis without current pathological fracture (ICD- 10) H/O coronary angiogram ?Z98.890 - Other specified postprocedural states (ICD-10) Macular hole ?H35.349 - Macular cyst, hole, or pseudohole, unspecified eye (ICD-10) COVID-19 vaccine administered ?Z23 - Encounter for immunization (ICD-10) Elevated blood sugar ?R73.9 - Hyperglycemia, unspecified (ICD-10) Obesity (BMI 30.0-34.9) ?E66.9 - Obesity, unspecified (ICD-10) Constipation ?K59.00 - Constipation, unspecified (ICD-10) Cervical spondylosis with myelopathy and radiculopathy ?M47.12 - Other spondylosis with myelopathy, cervical region (ICD-10) ?M47.22 - Other spondylosis with radiculopathy, cervical region (ICD-10) Glaucoma ?H40.9 - Unspecified glaucoma (ICD-10) Insomnia ?G47.00 - Insomnia, unspecified (ICD-10) Malignant neoplasm of left breast ?C50.912 - Malignant neoplasm of unspecified site of left female breast (ICD- 10) Umbilical hernia without mention of obstruction or gangrene ?K42.9 - Umbilical hernia without obstruction or gangrene (ICD-10) Issue of repeat prescription ?Z76.0 - Encounter for issue of repeat prescription (ICD-10) Abnormal mammogram ?R92.8 - Other abnormal and inconclusive findings on diagnostic imaging of breast (ICD-10) DVT (deep venous thrombosis) ?I82.409 - Acute embolism and thrombosis of unspecified deep veins of unspecified lower extremity (ICD-10) Cholelithiasis ?K80.20 - Calculus of gallbladder without cholecystitis without obstruction (ICD-10) Rotator cuff syndrome of both shoulders ?M75.101 - Unspecified rotator cuff tear or rupture of right shoulder, not specified as traumatic (ICD-10) ?M75.102 - Unspecified rotator cuff tear or rupture of left shoulder, not specified as traumatic (ICD-10) Chronic lymphocytic thyroiditis ?E06.3 - Autoimmune thyroiditis (ICD-10) Diverticulitis ?K57.92 - Diverticulitis of intestine, part unspecified, without perforation or abscess without bleeding (ICD-10) Hyperlipidemia ?E78.5 - Hyperlipidemia, unspecified (ICD-10) Hypothyroidism ?E03.9 - Hypothyroidism, unspecified (ICD-10) Chronic pain ?G89.29 - Other chronic pain (ICD-10) Arachnoiditis ?G03.9 - Meningitis, unspecified (ICD-10) Surgical History S/P rotator cuff repair ?Z98.890 - Other specified postprocedural states (ICD-10) H/O arthroscopy of shoulder ?Z98.890 - Other specified postprocedural states (ICD-10) H/O hernia repair ?Z98.890 - Other specified postprocedural states (ICD-10) ?Z87.19 - Personal history of other diseases of the digestive system (ICD-10) Hx laparoscopic cholecystectomy ?Z90.49 - Acquired absence of other specified parts of digestive tract (ICD- 10) S/P breast lumpectomy ?Z98.890 - Other specified postprocedural states (ICD-10) H/O laminectomy ?Z98.890 - Other specified postprocedural states (ICD-10) Social History What is your current living situation?: I presently have a place to live Problems where you live: no known problems Problems where you live details: n/a In the past 12 months, utilities in danger of being shut off: no In past 12 months, lack of transportation kept you from medical appts, meetings, work, or getting things needed for daily living: no In the past 12 mos, have been you worried that your food would run out before you had money to buy more?: never true In the past 12 mos, the food you bought just didn't last and you didn't have money to buy more?: never true Highest level of school completed/degree received: some college, no degree Smoking Status: Former smoker What tobacco products do you use: cigarettes Smoking packs per day: 1 Smoking cigarettes per day: 20.0 Years smoked: 25 Smoking pack-years: 25.00 Smoking quit date/years: >15 years ago Do you use any of these nicotine containing products: None Nicotine containing products detail: quit 25 years ago Second hand tobacco smoke exposure: No How often do you have a drink containing alcohol: 2-4 times a month Alcohol type: wine Alcohol type details: 1 glass wine every 2-3 months. AUDIT-C Alcohol total score: 2 Non-prescribed substance use: denies use Caffeine: Yes How often does anyone, including family, friends and others, physically hurt you : never How often does anyone, including family, friends and others, insult or talk down to you: never How often does anyone, including family, friends and others, threaten you with harm: never How often does anyone, including family, friends and others, scream or curse at you: never service: No Exam Const: Vital Signs, click to edit/add: Vital Signs - 24 hr 06/19/24 15:58 Temperature 98.3 F Pulse Rate [Left P ulse Oximeter] 68 Respiratory Rate 16 Blood Pressure [Ri ght Upper Arm] 106/70 Pulse Oximetry 89 Oxygen Delivery Me thod Room Air Patient is alert, interactive, no apparent distress. Very well-kept in pleasant 78-year-old female seen in exam room 5. Sclera clear, face atraumatic, symmetrical facial function. She has no CVA tenderness. Lungs are clear, good air entry, no wheezing or crackles, no tachypnea. CV regular rate and rhythm, no murmur. Abdomen is soft, nontender, nondistended, no masses, no rebound or guarding , no organomegaly. Documenting provider has reviewed patient's vital signs: yes Course Course ED Course: Await urinalysis specimen, patient is drinking and trying to provide this. If urinalysis not suggestive of UTI, may need to consider further labs and imaging, expand on workup to consider other urinary tract problems such as kidney stones. Reevaluation(s) Time of Reevaluation #1: 16:55 Reevaluation #1: Patient still unable to urinate, nursing did do bladder scan and bladder appears empty. Will continue to have her drink fluids. Time of Reevaluation #2: 19:27 Reevaluation #2: Reviewed with patient that her urinalysis does seem to be consistent with the U TI. We will give her her 1st dose of antibiotic here in the form of Keflex 500 mg orally. Will send further prescription for her into the pharmacy to be picked up tomorrow. We went over pending urine culture, will contact her she should need any change in antibiotic based on the culture results. She is hemodynamically stable, afebrile. I think she is most certainly appropriate for outpatient management at this time. Vital Signs Vital signs: Initial Vital Signs Temperature 98.3 F 06/19/24 15:58 Temperature Source Temporal Artery Scan 06/19/24 15:58 Pulse Rate 68 06/19/24 15:58 Respiratory Rate 16 06/19/24 15:58 Blood Pressure 106/70 06/19/24 15:58 Blood Pressure Mean 82 06/19/24 15:58 Blood Pressure Position Sitting 06/19/24 15:58 Pulse Oximetry 89 06/19/24 15:58 Oxygen Delivery Method Room Air 06/19/24 15:58 Vital Signs Temperature 98.3 F 06/19/24 15:58 Pulse Rate 68 06/19/24 15:58 Respiratory Rate 16 06/19/24 15:58 Blood Pressure 106/70 06/19/24 15:58 Pulse Oximetry 89 06/19/24 15:58 Oxygen Delivery Method Room Air 06/19/24 15:58 Temperature 98.3 F 06/19/24 15:58 Pulse Rate 68 06/19/24 15:58 Respiratory Rate 16 06/19/24 15:58 Blood Pressure 106/70 06/19/24 15:58 Pulse Oximetry 89 06/19/24 15:58 Oxygen Delivery Method Room Air 06/19/24 15:58 MDM - Female Genitourinary Lab Data Attestation: I reviewed the patient's lab results. Labs: Lab Results 06/19/24 Range/Units 18:22 Urine Color Dark yellow (Yellow) Urine Appearance Slightly Cloudy A (Clear) Urine pH 5.5 (5.0-8.5) Ur Specific [place] 1.020 (1.000-1.030) Urine Protein 2+ A (Negative) Urine Glucose (UA) Negative (Negative) Urine Ketones Negative (Negative) Urine Blood 2+ A (Negative) Urine Nitrite Negative (Negative) Urine Bilirubin Negative (Negative) Urine Urobilinogen 0.2 (0.2-1.0) Ur Leukocyte Esterase 1+ A (Negative) Urine RBC >100 A (0-2) Urine WBC >100 A (0-5) Ur Squamous Epith Cells Few (None-Few) Urine Bacteria Moderate A (None) Discharge Plan Discharge Clinical Impression: Urinary tract infection Patient Disposition: Home, Self-Care Condition: Stable Instructions: Urinary Tract Infection in Older Adults (ED) Additional Instructions: Next dose of antibiotic is due tomorrow morning, prescription is sent to your pharmacy. Drink plenty of fluids to help keep the urine dilute. Take antibiotics as prescribed. If you are not improving over the next couple days, feel you are worsening at any point have concerns, please seek re-evaluation. Prescriptions: New cephalexin 250 mg capsule 250 mg PO TID Qty: 15 0RF No Action tizanidine [Zanaflex] 4 mg capsule 4 mg PO TID PRN (Reason: muscle spasticity) Qty: 20 0RF lidocaine 5 % Adhesive Patch,Medicated 1 patch transdermal Q24H PRNQty: 30 0RF latanoprost 0.005 % drops 1 drp ophthalmic (eye) DAILY Patient Comments: Instill 1 drop into both eyes at bedtime levothyroxine 137 mcg tablet 137 mcg PO DAILY Patient Comments: TAKE 1 TABLET BY MOUTH BEFORE BREAKFAST simvastatin 40 mg tablet 40 mg PO HS Hold Instructions: held while on Paxlovid Patient Comments: TAKE 1 TABLET BY MOUTH ONCE DAILY IN THE EVENING oxycodone-acetaminophen 5-325 mg tablet 2 tab PO Q4H PRN gabapentin 300 mg capsule 300 mg PO TID Patient Comments: TAKE 1 CAPSULE BY MOUTH THREE TIMES DAILY timolol maleate 0.5 % drops 1 drp OPHTHALMIC (EYE) HS oxycodone [OxyContin] 40 mg tablet,oral only,ext.rel.12 hr 40 mg PO DAILY docusate sodium [Colace] 100 mg capsule 100 mg PO HS Unisom (doxylamine) 25 mg tablet 12.5 mg PO HS PRN biotin 2,500 mcg capsule 2,500 mcg PO DAILY Follow Up/Referrals: Provider,Not a Local [Primary Care Provider] - Stand Alone Forms: [email or web address] Info Instructions
[2024-06-19 18:30] LABS: Appearance Urine Slightly Cloudy (Clear); Bilirubin Urine Negative (Negative); Blood Urine 2+ (Negative); Color Urine Dark yellow (Yellow); Glucose Urine Negative (Negative); Ketones Urine Negative (Negative); Leukocyte Esterase Urine 1+ (Negative); Nitrite Urine Negative (Negative); Protein Urine 2+ (Negative); Urobilinogen Urine 0.2 (0.2-1.0); pH Urine 5.5 (5.0-8.5)
[2024-06-19 18:56] LABS: RBC Urine >100 (0-2); Squamous Epithelial Cell Urine Few (None-Few); WBC Urine >100 (0-5)
[2024-06-19 18:57] LABS: Bacteria Urine Moderate
[2024-06-19] MEDS: cephALEXin 500 MG CAPSULE PO (19:28)
== END 2024-06-19 19:36 | disposition home or self-care (01) ==
PROVIDERS: Emergency Provider Family Medicine
DX: N39.0 Urinary tract infection, site not specified (principal)
CPT/HCPCS: 81001; 87086; 87186; 99283; A9270